=== PATIENT | male | born 1955 | race Caucasian/White ===

== ENCOUNTER 2025-05-27 10:34 | Inpatient (IN) | payer MEDICARE, MEDICAID, SELFPAY ==
[2025-05-27] VITALS (8 sets, daily range): BP systolic 99–146; BP diastolic 60–85; PULSE 57–86; RESP 16–22; TEMP 36.1–37; O2SAT 94–100; BMI 18.6
--- NOTE | 2025-05-27 12:26 | EKG_ITS ---
[facility] Test Date: 2025-05-27 Pat Name: BENNIE OROZCO Department: Room: - Gender: Male Used Equipment Sales Representative: : 1955 Requested By: Odalis Parada Order Number: [id number] Reading MD: Odalis Parada Measurements Intervals [place] Rate: 67 P: HI: QRS: 81 QRSD: 124 T: -79 QT: 418 QTc: 442 Interpretive Statements UNCERTAIN IRREGULAR RHYTHM ELECTRONIC VENTRICULAR PACEMAKER -- CONTOUR ANALYSIS BASED ON INTRINSIC RHYTHM LEFT VENTRICULAR HYPERTROPHY AND ST-T CHANGE [VOLTAGE CRITERIA PLUS ST/T ABNORMALITY] No previous ECG available for comparison /store/S0/[id number].pdf
--- NOTE | 2025-05-27 12:38 | XR_ITS ---
EXAM: AP chest single view TECHNIQUE: AP portable upright chest single view Date and time: May 27, 2025, 12:44 p.m. INDICATIONS: Chest pain shortness of breath onset today. FINDINGS: Mild prominence left ventricle Cardiac leads satisfactory position Prominent central pulmonary arteries. No pneumonia or pulmonary edema IMPRESSION: No pneumonia or pulmonary edema Suspicious for pulmonary artery hypertension
[2025-05-27 13:56] LABS: Basophils # (Auto) 0.1 Thou/mm3 (0.0-0.2); Basophils % (Auto) 1 % (0-2.5); Eosinophils # (Auto) 0.1 Thou/mm3 (0.0-0.5); Eosinophils % (Auto) 1 % (0-10); Hematocrit 42.1 % (41.0-53.0); Hemoglobin 14.1 g/dL (13.5-16.0); Immature Granulocytes Auto 0.05 Thou/mm3 (0.00-0.00); Lymphocytes # (Auto) 1.5 Thou/mm3 (1.0-4.8); Lymphocytes % (Auto) 13 % (10-50); Mean Corpuscular HGB Conc 33.5 g/dl (31.0-37.0); Mean Corpuscular Hemoglobin 26.9 pg (25.0-35.0); Mean Corpuscular Volume 80 fL (80-100); Monocytes # (Auto) 0.7 Thou/mm3 (0.0-0.8); Monocytes % (Auto) 6 % (0-12); Neutrophils # (Auto) 8.8 Thou/mm3 (1.8-7.7); Neutrophils % (Auto) 79 % (37-80); Nucleated Red Blood Cell # 0.00 Thou/mm3 (0.00-0.00); Nucleated Red Blood Cell % 0 /100 WBC (0); Platelet Count 270 Thou/mm3 (140-440); RDW Standard Deviation 49.2 fL (35.1-43.9); Red Blood Count 5.24 Miln/mm3 (4.50-5.90); White Blood Count 11.1 Thou/mm3 (3.8-10.6)
[2025-05-27 14:14] LABS: INR 1.2 (0.9-1.3); Partial Thromboplastin Time 30.0 Seconds (22.0-36.0); Prothrombin Time 12.9 Seconds (9.0-12.2)
[2025-05-27 14:15] LABS: D-Dimer 273 ng/mL (<600)
[2025-05-27 14:32] LABS: B-Type Natriuretic Peptide 80 pg/mL (0-100)
[2025-05-27 14:36] LABS: Alanine Aminotransferase 13 U/L (10-49); Albumin, Serum 4.3 gm/dL (3.4-4.8); Albumin/Globulin Ratio 0.9 (1.2-2.2); Alkaline Phosphatase 87 U/L (46-116); Anion Gap 14 (7-16); Aspartate Amino Transferase 19 U/L (0-34); BUN/Creatinine Ratio 32 Ratio (12-20); Bilirubin,Total 0.7 mg/dL (0.3-1.2); Blood Urea Nitrogen 60 mg/dL (9-23); Calcium 10.0 mg/dL (8.3-10.6); Calcium (Corrected) 10.0 mg/dL (8.5-10.1); Carbon Dioxide 20.8 mMol/L (20.0-31.0); Chloride 100 mMol/L (98-107); Creatinine (Component) 1.9 mg/dL (0.6-1.3); Estimated Creatinine Clearance 36.4 mL/min (>60); Globulin 4.8 gm/dL (2.3-3.5); Glucose 118 mg/dL (74-106); Magnesium 1.8 mg/dL (1.6-2.6); Osmolality,Calculated 288 (275-295); Potassium 5.1 mMol/L (3.4-5.1); Sodium 135 mMol/L (136-145); Total Protein 9.1 gm/dL (5.7-8.2); eGFR 37 See Note
[2025-05-27 14:38] LABS: Troponin I 0.092 ng/mL (0.0-0.045)
--- NOTE | 2025-05-27 15:20 | XR_ITS ---
EXAMINATION: Left hip with AP pelvis 3 views TECHNIQUE: AP pelvis, AP lateral left hip 3 views Date and time: May 27, 2025, 1537 hours INDICATIONS: Patient fell today with into the left hip, left hip pain. FINDINGS: Postop reduction internal fixation healed left hip fracture No acute right or left hip fracture noted Bones of the pelvis intact IMPRESSION: No acute hip or pelvic fracture If pain persists recommend 1 day follow-up AP pelvis
--- NOTE | 2025-05-27 15:20 | XR_ITS ---
EXAMINATION: AP lumbar spine single view TECHNIQUE: AP portable supine lumbar spine single view Date and time: May 27, 2025, 1547 hours INDICATIONS: Patient fell today with injury to the lower back, lower back pain. FINDINGS: Lumbar dextroscoliosis 15 degrees Prominent osteopenia No acute lumbar fracture depicted Large amount of stool in the rectum IMPRESSION: Recommend lateral view lumbar spine follow-up
[2025-05-27 16:06] LABS: Collection Type, Urine Clean Catch; Squamous Epithelial Cell,Urine 0 /hpf (0-5)
[2025-05-27 16:10] LABS: Bilirubin,Urine Negative (Negative); Blood,Urine Negative (Negative); Clarity,Urine Clear (Clear/Hazy); Color,Urine Lt-Yellow (Lt Yel-Yel); Culture Indicated,Urine Not Indicated; Glucose, Urine 3+ (Negative); Hyaline Casts,Urine < 1 /hpf (0-1); Ketones,Urine Negative (Negative); Leukocyte Esterase,Urine Negative (Negative); Nitrite,Urine Negative (Negative); PH,Urine 5.5 (5.0-7.0); Protein,Urine Negative (Neg - Trace); RBC,Urine 1 /hpf (0-3); Specific Gravity,Urine 1.016 (1.001-1.035); Urobilinogen,Urine Negative mg/dL (0.0-1.0); WBC,Urine < 1 /hpf (0-5)
[2025-05-27 16:16] LABS: Amphetamine/Methamp Scrn,U Negative (Negative); Barbiturate Screen,Urine Negative (Negative); Benzodiazepines Screen,Urine Negative (Negative); Benzoylecgonine Screen, Ur Negative (Negative); Fentanyl Screen,Urine Negative (Negative); Opiate Screen,Urine Negative (Negative); THC Screen,Urine Negative (Negative)
--- NOTE | 2025-05-27 16:23 | EDNOTE_ITS ---
ED General RME/HPI General Chief complaint: Shortness of Breath/Dyspnea Stated complaint: SOB Time Seen by Provider: 05/27/25 12:25 Arrival date/time: 05/27/25 10:34 Limitations: no limitations RME / HPI RME / HPI narrative: 69 year old male with history of CVA, CHF, pacemaker placement, hypertension, diabetes, hyperlipidemia presents to the ED BIBA from the methadone clinic for evaluation of shortness of breath and confusion. Per caregiver, the RN at the clinic evidently reported the patient appeared to have difficulty breathing and when asked his name or where he did not answer appropriately. Caregiver ad ditionally reports the patient has had multiple falls in the last several days. Last had a ground level mechanical fall 2 days ago and in the ED complains of pain to the left thigh/hip area. No head injury or LOC. No other complaints reported. Caregiver mentioned the patient has had some memory problems for several months and is being worked up by PCP for dementia. States patient recently had labs and head CT performed at [facility]. Additionally states that 1 month ago the patient saw his chemical research engineer Dr. Lopez and had a stress test performed that was unremarkable. Related Data Allergies Allergy/AdvReac Type Severity Reaction Status Date / Time NKA* Allergy Uncoded 05/27/25 11:48 Review of Systems Review of Systems Systems Reviewed: All systems reviewed, normal except as documented Past Medical History Past Medical History NEUROLOGIC: Positive Cerebrovascular Accident CARDIAC: Positive Hypertension GASTROINTESTINAL: Positive Gastroesophageal Reflux Disease MUSCULOSKELETAL: Positive Fractures ENDOCRINE: Positive Diabetes Mellitus Type 2 Surgical History SURGICAL: Positive Pacemaker Social History SMOKING STATUS: Never smoker ED Exam General Limitations: Present no limitations General appearance: Present alert and in no apparent distress Head Head exam: Present atraumatic Eye Eye exam: Present normal appearance, PERRL and EOMI ENT ENT exam: Present normal exam, normal oropharynx and mucous membranes moist Neck Neck exam: Present normal inspection, full ROM and trachea midline Chest Chest inspection: Present normal inspection and symmetric chest wall rise Respiratory Respiratory exam: Present normal lung sounds bilaterally Cardiovascular Cardiovascular exam: Present regular rate, normal rhythm and normal heart sounds Abdominal Exam Abdominal exam: Present soft and normal bowel sounds Extremities Exam Extremities exam: Present normal inspection and full ROM Back Exam Back exam: Present normal inspection and full ROM Neurological Exam Neurological exam: Present alert, oriented X3 and CN II-XII intact Psychiatric Psychiatric exam: Present normal affect and normal mood Skin Skin exam: Present warm, dry, intact and normal color Course Quality Measures none Orders Category Date Time Status EKG (ED Only) Stat Exams 05/27/25 12:26 Draft XR chest 1V portable Stat Exams 05/27/25 12:38 Completed XR hip LT w pelvis 2-3V Stat Exams 05/27/25 15:20 Completed XR lumbar spine 1V Stat Exams 05/27/25 15:20 Completed B-Type Natriuretic Peptide Stat Lab 05/27/25 13:30 Completed Blood Culture (Lab) Stat Lab 05/27/25 13:23 Received CBC Stat Lab 05/27/25 13:30 Completed Comprehensive Metabolic Panel Stat Lab 05/27/25 13:30 Completed D-Dimer Stat Lab 05/27/25 13:30 Completed Drug Screen,Urine Stat Lab 05/27/25 15:59 Completed Magnesium Stat Lab 05/27/25 13:30 Completed Partial Thromboplastin Time Stat Lab 05/27/25 13:30 Completed Prothrombin Time with INR Stat Lab 05/27/25 13:30 Completed Troponin I Stat Lab 05/27/25 13:30 Completed Troponin I Stat Lab 05/27/25 16:45 Completed Urinalysis, C/S if Indicated Stat Lab 05/27/25 15:50 Completed LORazepam [Ativan] Med 05/27/25 12:27 Discontinued 2 mg PO X1 ONE Vital Signs Vital signs: Vital Signs Temperature 97.6 F 05/27/25 10:53 Pulse Rate 57 L 05/27/25 10:53 Respiratory Rate 18 05/27/25 10:53 Blood Pressure 125/62 05/27/25 10:53 Pulse Oximetry (%) 96 05/27/25 10:53 Oxygen Delivery Method Room Air 05/27/25 10:53 Pulse ox is 96% on room air which is adequate. Discharge Plan Plan Patient Disposition: Admit Acute Care w/in Hospital Patient condition on transfer: Stable Prescriptions/Referrals Referrals: Roque Leonard MD [Primary Care Provider] - In 1 week Problem List Clinical Impression: Elevated troponin, Adult failure to thrive, Acute dehydration Patient/Caregiver Discharge Instructions Print Language: Chinese Stand Alone Forms: Danna Award Info., Patient Portal Info Letter MDM Narrative MDM hospital course (for use when minimal MDM required): This is a 69-year-old male with a history of hypertension, diabetes, pacemaker, seen by cardiology at [place] and has been cleared for the last 10 years from his heart status . Per EMS records the patient had an 88% on room air on arrival. On arrival to the emergency department the patient then had 99% on room air. Blood sugar was 153 prior to arrival. The pneumatic tester mechanic also states that he he was complaining of pain of his left hip when he could have had a mechanical fall. The patient presents with his pneumatic tester mechanic who takes care of him at home because his nurse felt that he was not at his baseline and he was complaining of shortness of breath. She reports that he has been falling more over the last 1 week. He has been being worked up by Dr. Leonard for possible dementia as an outpatient but the decline in his symptoms over the last 1 week has a family concern. Chest x-ray to evaluate for evidence of CHF, CHF, or cardiomegaly. EKG/troponin to evaluate for evidence of arrhythmia/ACS/AMI. Labwork (CBC, CMP) to evaluate for evidence of severe anemia, electrolyte abnl including hypokalemia, hyperkalemia, hypernatremia, hyponatremia, hyperglycemia, hypoglycemia, etc CT brain to evaluate for evidence of mass/CVA/TIA. Patient's pneumatic tester mechanic. The patient is brought in by EMS. (Independent Historian: The patient's pneumatic tester mechanic states that he has not been sleeping the last few days. EXTERNAL RECORD REVIEW: I reviewed and interpreted prior non-ED medical record specialty: There are no previous records in our system. Social Determinants of Health Affecting Care: Patient lives alone with his pneumatic tester mechanic who takes care of him 24 hours a day Social determinants of health that will affect patient's care are:?I have no access to his records. Will need to order them. Poor Health Literacy (Additional Time Provided in Explanation)-N/A Drug Abuse (Provided Counseling and Discussed Risks of Substance Abuse)-patient is on methadone Alcohol Abuse (Provided Counseling and Discussed Risks of Alcohol Abuse)-unknown Psychiatric Illness poorly controlled (Additional Time Provided in Explanations)-unknown Poor access to outpatient care/follow up (Provided Outpatient Resources)-patient has good follow-up as an outpatient with his primary care physician. Lack of transportation (Arranged Transport as Needed)-the patient has a ride with his pneumatic tester mechanic Homelessness (Provided Resources)-the patient is not homeless The patient has an initial troponin of 0.094 and repeat it is 0.090. D-dimer is negative. Suspect that this could be elevated from his creatinine being 1.9. However I do not have previous records. Sodium is 135 and otherwise INR is normal at 1.2. Head CT is obtained which does not show stroke. At this time will likely need to get his previous records. Chest x-ray does not show pneumonia. Lumbar 1 view does not show fracture and recommended repeat lateral view. Hip her x-rays are negative for fracture. At this time I will obtain his records from we are because that is where he gets all his care. Will hydrate. I am unclear if he has acute renal failure but his symptoms could be caused from dehydration. 1830: I spoke with hospitalist team B for admission. State they will come down and evaluate the patient for admission. I did speak to the daughter and the pneumatic tester mechanic who states that over the last few weeks the patient's mental status has been declining. He has been having some frequent falls. No isolated weakness or numbness. No facial droop and otherwise is not having any stroke like other symptoms in the last 3 days. The patient is urinating on himself, he is becoming slightly more agitated. This could just be an undiagnosed dementia. The pneumatic tester mechanic will go home and get a list of all his medications. The patient is also on 60 mg of methadone which the pneumatic tester mechanic has a bottle at home to prove this. The decision to admit has been placed because likely this patient will need to be admitted. Clinical Information Provided by: patient, EMS and family (caregiver ) Medical Records reviewed EMS Meds/Rx considered, not ordered None Labs/Rad/Tests considered, not ordered None Chronic Illness/Social Conditions which may negatively complicate care or outcome(s)-explain: CVA/aphasic EKG Interpretation EKG #1: EKG Interpretation: EKG @ 12:44. Paced rhythm, rate 67, LVH, no prior EKG for comparison. Labs Labs: see narrative above Imaging Imaging interpretation: see narrative above Imaging Interpretation(s): Ordering Physician: Odalis Aponte MD Date of Service: 05/27/25 Procedure(s): XR chest 1V portable Accession Number(s): [id number] cc: Unruly Murcia MD; Odalis Aponte MD~ EXAM: AP chest single view TECHNIQUE: AP portable upright chest single view Date and time: May 27, 2025, 12:44 p.m. INDICATIONS: Chest pain shortness of breath onset today. FINDINGS: Mild prominence left ventricle Cardiac leads satisfactory position Prominent central pulmonary arteries. No pneumonia or pulmonary edema IMPRESSION: No pneumonia or pulmonary edema Suspicious for pulmonary artery hypertension Dictated By: Unruly Murcia MD Signed By: <Electronically signed by Unruly Murcia MD in OV> 05/27/25 1300 ==== Ordering Physician: Holly Arenas MD Date of Service: 05/27/25 Procedure(s): XR hip LT w pelvis 2-3V Accession Number(s): [id number] cc: Roque Leonard MD; Holly Arenas MD; Unruly Murcia MD~ EXAMINATION: Left hip with AP pelvis 3 views TECHNIQUE: AP pelvis, AP lateral left hip 3 views Date and time: May 27, 2025, 1537 hours INDICATIONS: Patient fell today with into the left hip, left hip pain. FINDINGS: Postop reduction internal fixation healed left hip fracture No acute right or left hip fracture noted Bones of the pelvis intact IMPRESSION: No acute hip or pelvic fracture If pain persists recommend 1 day follow-up AP pelvis Dictated By: Unruly Murcia MD Signed By: <Electronically signed by Unruly Murcia MD in OV> 05/27/25 1614 Ordering Physician: Holly Arenas MD Date of Service: 05/27/25 Procedure(s): XR lumbar spine 1V Accession Number(s): [id number] cc: Roque Leonard MD; Holly Arenas MD; Unruly Murcia MD~ EXAMINATION: AP lumbar spine single view TECHNIQUE: AP portable supine lumbar spine single view Date and time: May 27, 2025, 1547 hours INDICATIONS: Patient fell today with injury to the lower back, lower back pain. FINDINGS: Lumbar dextroscoliosis 15 degrees Prominent osteopenia No acute lumbar fracture depicted Large amount of stool in the rectum IMPRESSION: Recommend lateral view lumbar spine follow-up Dictated By: Unruly Murcia MD Signed By: <Electronically signed by Unruly Murcia MD in OV> 05/27/25 1616 Medication Administration(s) Medication Administration History Discontinued Medications Lorazepam (Lorazepam 0.5 Mg Tablet) 2 mg PO X1 ONE Stop: 05/27/25 12:28 Last Admin: 05/27/25 12:30 Dose: Not Given Documented By: DO Non-Admin Reason: Discontinued See above
[2025-05-27 17:26] LABS: Troponin I 0.090 ng/mL (0.0-0.045)
--- NOTE | 2025-05-27 19:53 | PD.EDADDENDU ---
Emergency Room Addendum Addendum Narrative: Patient was signed out to me awaiting admission. The medicine team came down to evaluate the patient and they do not believe the patient needs to be admitted. Patient is in stable condition. He had a recent stress echocardiogram which was negative. First troponin was 0.092 and the second troponin was 0.090. EKG showed no ischemic changes. Patient is mildly demented and in no respiratory distress. No complaints of pain. Patient does have a history of chronic kidney disease. He has mild prerenal azotemia here in the emergency room. I believe the patient can be discharged. He does have primary care follow-up.
--- NOTE | 2025-05-27 20:06 | PD.RESCONSUL ---
HPI Data of Consult Consult date: 05/27/25 Primary Care Provider: Roque Leonard MD Consult Narrative History of present illness: 69 year old male with history of CVA, CHF, pacemaker placement, hypertension, diabetes, hyperlipidemia, CKD presents to the ED BIBA from the methadone clinic for evaluation of shortness of breath and confusion. Patient has underlying dementia at baseline for which his PCP is working up. He had recent work up done in [facility] for including cardiac work up which was found to be negative. The caregiver reports per chart review that the patient is having falls however workup in the ED reveals no acute fracture. On review of his labs they seem to be mostly inremarkable except for some troponins which are downtrending and EKG with no acute ischemic changes and patient has no complaints of cardiac symptoms nor shortness of breath as patient is saturating 99% on room air resting comfortably. His labs also show CKD stage IIIb and received IV hydration in the ED. Clinically the patient looks stable with benign physical exam. The medicine teams believes given his dementia and his problems that were already adressed in the ED patient can be safely discharged with strict follow up with his primary care physician and to avoid hospital aquired delirium from his dementia. Should any new symptoms recur or worsen patient can return to the ED and the medicine team will gladly evaluate the patient. cc:: cc: Exam Vital Signs Temp Pulse Resp BP Pulse Ox O2 Del Method 98.0 F 78 20 106/74 96 Room Air 05/27/25 19:41 05/27/25 19:41 05/27/25 19:41 05/27/25 19:41 05/27/25 19:41 05/27/25 19:41 Results Labs 05/27/25 13:30 05/27/25 13:30 Labs: Short CBC 05/27/25 Range/Units 13:30 WBC 11.1 H (3.8-10.6) Thou/mm3 Hgb 14.1 (13.5-16.0) g/dL Hct 42.1 (41.0-53.0) % Plt Count 270 (140-440) Thou/mm3 BMP 05/27/25 13:30 Sodium 135 L Potassium 5.1 Chloride 100 Carbon Dioxide 20.8 BUN 60 H Creatinine 1.9 H Glucose 118 H Calcium 10.0 Cardiac Enzymes 05/27/25 05/27/25 Range/Units 13:30 16:45 Troponin I 0.092 H* 0.090 H* (0.0-0.045) ng/mL Liver Function 05/27/25 Range/Units 13:30 Total Bilirubin 0.7 (0.3-1.2) mg/dL AST 19 (0-34) U/L ALT 13 (10-49) U/L Alkaline Phosphatase 87 (46-116) U/L Albumin 4.3 (3.4-4.8) gm/dL Urine 05/27/25 Range/Units 15:50 Urine Color Lt-Yellow (Lt Yel-Yel) Urine Clarity Clear (Clear/Hazy) Urine pH 5.5 (5.0-7.0) Ur Specific [place] 1.016 (1.001-1.035) Urine Protein Negative (Neg - Trace) Urine Glucose (UA) 3+ A (Negative) Quality Measures Quality Measures none Medications Home Medications and Allergies Allergies Allergy/AdvReac Type Severity Reaction Status Date / Time NKA* Allergy Uncoded 05/27/25 11:48 Visit Medications Discontinued Medications Lorazepam (Lorazepam 0.5 Mg Tablet) 2 mg PO X1 ONE Stop: 05/27/25 12:28 Last Admin: 05/27/25 12:30 Dose: Not Given
--- NOTE | 2025-05-27 20:25 | ESHP_ITS ---
Documentation for date of: 05/27/25 HPI - Hospitalist History of Present Illness History of present illness: Source: I spoke with her daughter over the phone. The patient's caregiver is also at bedside CC: Shortness of breath, increased confusion HPI: The patient is 69 yr old male. Past medical history is significant for . The patient presents with shortneees of breath and confusion. He had recent falls at home. He is being worked up for possible dementia. He was at the Methadone clinic today where he was noted to be short of breath and confused ( more than his baseline). His caregiver is beside him in the ER. Onset of symptom is few days. Duration is fes days. He is takking his medications. List of meds not available. Aggravating/relieving factors - none. Associated symptoms include urinary incontinence. nausea. Pertinent negative, no fever, no cough. Context. There was no recent procedures and no change in medications. No use of OTC medications There was no recent travel and no sick contacts. No recent trauma or falls. Patient lives at home, he has a caregiver. Patient is FULL CODE. Past medical history: + diabetes, + hypertension, + CHF, + CVA Surgical history: left hip nailing, Pacemaker Personal history: non smoker, non ETOH drinker, no recreational drug use. Family history: no diabetes, no hypertension, no heart disease, no cancer. Meds Home Medications and Allergies Allergies Allergy/AdvReac Type Severity Reaction Status Date / Time NKA* Allergy Uncoded 05/27/25 11:48 Exam Vital Signs Temp Pulse Resp BP Pulse Ox O2 Del Method 98.6 F 80 16 114/60 96 Room Air 05/27/25 20:06 05/27/25 20:06 05/27/25 20:06 05/27/25 20:06 05/27/25 20:06 05/27/25 19:41 Gen: Awake, confused Skin: warm, good turgor, no rash HEENT: NCAT, [place], no nasoaural discharge, dry mucous membranes Neck: supple, no JVD, no thyromegaly Lungs: clear to auscultation, PPM left upper chest CV: regular rate and rhythm, no murmurs, no edema Abd: soft and non tender, normoactive bowel sounds : no CVA tenderness, min supapubic fullness Ext: no calf tenderness. Neuro: alert, oriented, non focal Psych: calm, cooperative, not depressed. Results - Hospitalist Labs Diagrams: 05/27/25 13:30 05/27/25 13:30 Labs: Short CBC 05/27/25 Range/Units 13:30 WBC 11.1 H (3.8-10.6) Thou/mm3 Hgb 14.1 (13.5-16.0) g/dL Hct 42.1 (41.0-53.0) % Plt Count 270 (140-440) Thou/mm3 BMP 05/27/25 13:30 Sodium 135 L Potassium 5.1 Chloride 100 Carbon Dioxide 20.8 BUN 60 H Creatinine 1.9 H Glucose 118 H Calcium 10.0 Cardiac Enzymes 05/27/25 05/27/25 Range/Units 13:30 16:45 Troponin I 0.092 H* 0.090 H* (0.0-0.045) ng/mL Liver Function 05/27/25 Range/Units 13:30 Total Bilirubin 0.7 (0.3-1.2) mg/dL AST 19 (0-34) U/L ALT 13 (10-49) U/L Alkaline Phosphatase 87 (46-116) U/L Albumin 4.3 (3.4-4.8) gm/dL Urine 05/27/25 Range/Units 15:50 Urine Color Lt-Yellow (Lt Yel-Yel) Urine Clarity Clear (Clear/Hazy) Urine pH 5.5 (5.0-7.0) Ur Specific [place] 1.016 (1.001-1.035) Urine Protein Negative (Neg - Trace) Urine Glucose (UA) 3+ A (Negative) Assessment & Plan -Hospitalist Patient Synopsis Assessment and plan: 69-year-old male patient with hypertension, diabetes mellitus, congestive heart failure, history of CVA, status post permanent pacemaker was seen in the ED today. He came from the methadone clinic where he was noted to be short of breath and more confused than his baseline he also reportedly has been falling down at home. He has no fever no cough. He had elevated troponin. EKG showed sinus rhythm with PVCs. Nonspecific ST-T wave changes. Head CT scan was ordered. 1. Acute kidney injury -BUN 60 creatinine 1.9. Potassium level is 5.1. Will need to monitor potassium level. - - prob pre-renal will give LR 75 ml/hr. check I/O, body weight - repeat BUN and creatinine - renal ultrasound ordered, to r/o obstructive uropathy, kidney stones 2. Dysnpea, prob acute on chronic CHF elevated tropoin , prob demand ischemia - check BNP, pt is not hypoxic, no fever - chest xray show no effusion, no cardiomegaly - monitor O2 sats check O2 sat particularly during activity or during ambulation - give supplemental oxygen, continuous cardiac monitoring, - ASA. lipitor - dimer and BNP not elevated. 3. Acute encephalopathy - prob metabolic, or may drug induced - check CT brain wo contrast - check for new stroke, NPH, SDH - consult neurolgy in am. 4. Diabetes mellitus - he is on oral medications, 5.Hypertension - resume home meds 6 hyponatremia -Serum sodium level of 135, we will continue to follow. CODE STATUS: Full code GI and DVT prophylaxis Estimated length of stay: Less than 2 midnights Quality Measures Quality Measures none Advance care planning discussed with:: child (daughter)
--- NOTE | 2025-05-27 20:34 | EDNOTE_ITS ---
Emergency Room Addendum Addendum Narrative: The internal medicine attending came down to evaluate the patient. They spoke with family members and the supervisor furnace process. Patient now will be admitted to the hospital for further treatment and evaluation.
--- NOTE | 2025-05-27 20:40 | XR_ITS ---
EXAMINATION: CT head brain without contrast Date and time: May 27, 2025, 10:30 p.m. INDICATIONS: Patient fell today with injury to the head, head pain TECHNIQUE: Multiple 5.0 mm situses axial images of the brain 2D sagittal and coronal reconstructions 3D reconstructions CTDI 48.5 DLP 962 FINDINGS: Ventricles normal size and configuration Old infarct left caudate nucleus No acute hemorrhage either intra or extra-axial Prominent ethmoid sphenoid sinusitis IMPRESSION: Negative for acute hemorrhage or mass effect or midline shift
--- NOTE | 2025-05-27 20:46 | XR_ITS ---
EXAMINATION: Retroperitoneal sonography complete Date and time: May 27, 2025, 2055 hours Indications of: Acute renal insufficiency and laboratory examination today Technique and findings: Multiple sonographic images kidneys and urinary bladder as follows retroperitoneum Right kidney 9.5 cm renal cortex 2.1 cm Left kidney 10.6 cm renal cortex 1.8 cm Moderate bilateral renal parenchymal scar formation No bladder mass or bladder calculi Bladder prevoid volume 138 cc Prostate 4.4 x 3.6 x 4.8 cm volume 39.8 cc no prostate nodules IMPRESSION: Small kidneys with renal cortical thinning Moderate bilateral renal parenchymal scar formation No hydronephrosis
[2025-05-27] MEDS: RINGERS LACTATED 1000 ML 1,000 ML 75 ML IV (21:10)
[2025-05-27 21:38] LABS: D-Dimer 426 ng/mL (<600)
[2025-05-27 21:42] LABS: B-Type Natriuretic Peptide 98 pg/mL (0-100)
[2025-05-27 21:46] LABS: Troponin I 0.095 ng/mL (0.0-0.045)
[2025-05-28] VITALS (8 sets, daily range): BP systolic 91–123; BP diastolic 52–80; PULSE 50–83; RESP 16–25; TEMP 35.9–36.2; O2SAT 95–100; BMI 16.9; BMI 13.0
[2025-05-28 03:06] LABS: Basophils # (Auto) 0.1 Thou/mm3 (0.0-0.2); Basophils % (Auto) 1 % (0-2.5); Eosinophils # (Auto) 0.1 Thou/mm3 (0.0-0.5); Eosinophils % (Auto) 1 % (0-10); Hematocrit 40.2 % (41.0-53.0); Hemoglobin 13.5 g/dL (13.5-16.0); Immature Granulocytes Auto 0.05 Thou/mm3 (0.00-0.00); Lymphocytes # (Auto) 2.1 Thou/mm3 (1.0-4.8); Lymphocytes % (Auto) 15 % (10-50); Mean Corpuscular HGB Conc 33.6 g/dl (31.0-37.0); Mean Corpuscular Hemoglobin 26.5 pg (25.0-35.0); Mean Corpuscular Volume 79 fL (80-100); Monocytes # (Auto) 1.0 Thou/mm3 (0.0-0.8); Monocytes % (Auto) 7 % (0-12); Neutrophils # (Auto) 10.1 Thou/mm3 (1.8-7.7); Neutrophils % (Auto) 76 % (37-80); Nucleated Red Blood Cell # 0.00 Thou/mm3 (0.00-0.00); Nucleated Red Blood Cell % 0 /100 WBC (0); Platelet Count 278 Thou/mm3 (140-440); RDW Standard Deviation 48.3 fL (35.1-43.9); Red Blood Count 5.09 Miln/mm3 (4.50-5.90); White Blood Count 13.4 Thou/mm3 (3.8-10.6)
[2025-05-28 03:33] LABS: Anion Gap 13 (7-16); BUN/Creatinine Ratio 51 Ratio (12-20); Blood Urea Nitrogen 77 mg/dL (9-23); Calcium 9.2 mg/dL (8.3-10.6); Carbon Dioxide 20.2 mMol/L (20.0-31.0); Cardiac Risk Estimate 3.6 RATIO (4.0-6.7); Chloride 100 mMol/L (98-107); Cholesterol 113 mg/dL (132-200); Creatinine (Component) 1.5 mg/dL (0.6-1.3); Estimated Creatinine Clearance 46.2 mL/min (>60); Glucose 102 mg/dL (74-106); HDL Cholesterol 31 mg/dL (40-60); LDL Cholesterol,Calculated 59 mg/dL (0-130); Magnesium 1.8 mg/dL (1.6-2.6); Osmolality,Calculated 289 (275-295); Potassium 4.8 mMol/L (3.4-5.1); Sodium 133 mMol/L (136-145); Thyroid Stimulating Hormone 0.93 uIU/mL (0.55-4.78); Triglycerides 117 mg/dL (30-150); eGFR 50 See Note
[2025-05-28 03:34] LABS: Troponin I 0.092 ng/mL (0.0-0.045)
[2025-05-28 07:33] LABS: Phosphorous 4.7 mg/dL (2.4-5.1)
[2025-05-28 08:54] LABS: Glucose Estimated Average 148 mg/dL (80-131); Hemoglobin A1C 6.8 % Hgb (4.8-6.0)
--- NOTE | 2025-05-28 09:00 | EKG_ITS ---
[facility] Test Date: 2025-05-28 Pat Name: BENNIE BHARDWAJ Department: Room: - Gender: Male Trousseau Consultant: VALENTIN : 1955 Requested By: Cheo Cheung Order Number: [id number] Reading MD: Cheo Cheung Measurements Intervals [place] Rate: 79 P: AK: QRS: 83 QRSD: 110 T: 267 QT: 417 QTc: 480 Interpretive Statements ATRIAL FIBRILLATION WITH ABERRANT CONDUCTION OR VENTRICULAR PREMATURE COMPLEXES ST DEVIATION AND MARKED T-WAVE ABNORMALITY, CONSIDER LATERAL ISCHEMIA ST DEVIATION AND MODERATE T-WAVE ABNORMALITY, CONSIDER INFERIOR ISCHEMIA No previous ECG available for comparison /store/S0/[id number]/[id number]
[2025-05-28 09:10] LABS: Troponin I 0.102 ng/mL (0.0-0.045)
--- NOTE | 2025-05-28 09:30 | PC.NURSE ---
Spoke to Nurse Jana from [facility] to verify methadone dosage. Per Jana patient is taking methadone 60mg daily and he did not received his methadone dose yesterday (05/27/25). Dr. Pickering made aware.
[2025-05-28] MEDS: Magnesium Sulfate 4 GM Ivpb 4 GM/50 ML BAG IV (09:44)
[2025-05-28] MEDS: TAMSULOSIN HCL 0.4 MG CAPSULE PO (09:46)
[2025-05-28] MEDS: APIXABAN 2.5 MG TABLET 5 MG PO ×2 (09:46→20:30)
[2025-05-28] MEDS: FINASTERIDE 5 MG TABLET PO (09:48)
[2025-05-28] MEDS: POLYETHYLENE GLYCOL 17 GM PACKET PO (09:48)
--- NOTE | 2025-05-28 14:53 | PC.SS ---
Rounding Note: PT evaluation is pending. Bowel movement pending.
--- NOTE | 2025-05-28 15:34 | PC.SS ---
COMMUNITY YOUTH SECRETARY conducted bedside contact with the patient conduct initial assessment and to discuss discharge planning.? At bedside with patient was [facility] healthcare analyst, Nida Song .? Patient resides at home alone.? Patient receives 30 hrs a week of [facility].? Patient utilizes a walker to assist with DME.? Patient does not utilize home oxygen.? Patient requires assistance with completion of ADL?s.? Patient confirmed daughter, Sneha Lama as medical surrogate decision maker.? Patient?s PCP is Roque Leonard.? Patient does not participate with dialysis.? Patient possesses a butter liquefier Osman Russell.? Patient possesses history of diabetes, on Metformin and Ozempic.? Discharge plan is pending home vs SNF.? If home health recommended, no preferred home health agency identified.? If SNF recommended no SNF preference.? Patient informed that SNF placement will require authorization.? Patient possesses coverage for transport upon discharge.? No further discharge needs identified by the patient.? No further intervention required at this time, social research assistant will be available to address any further concerns.? Next of Kin: Sneha Kelby D/C Plan: Pending
[2025-05-28] MEDS: SODIUM CHLORIDE 0.9% 250 ML 250 ML 999 ML IV (15:40)
--- NOTE | 2025-05-28 16:05 | PD.RESPRO ---
Documentation for date of: 05/28/25 Subjective Subjective Interval history: Labs reviewed and patient examined at the bedside. Today patient is AAO x 1. He noted that he had a history of seizure causing him unable to move his left arm. However, patient was able to walk and perform daily activities by himself at home. Per chart history, there were no witnessed seizure and no post ictal state has been noted. Based on lumbar x-ray, patient had a large stool so he was given senna, MiraLAX and Dulcolax for bowel movement. Tried to contact the patient's daughter to inquire her about patient's baseline. However, was unable to get in touch with her. HbA1c showed 6.8. Patient was put on insulin sliding scale. Patient's home medications finasteride 5 mg p.o. daily and tamsulosin 0.4 mg p.o. daily has been restarted. Currently pending Physical Therapy assessment for patient's placement after discharge. Patient or Patient's daughter need to be notified to get assessment for possibly undiagnosed underlying dementia in outpatient setting. Exam Vital Signs Temp Pulse Resp BP Pulse Ox O2 Del Method 97.0 F 83 16 91/52 L 95 Room Air 05/28/25 15:44 05/28/25 15:44 05/28/25 15:44 05/28/25 15:44 05/28/25 15:44 05/28/25 15:44 Narrative Exam General: Elderly, Frail, AAO x1 Eye: Normal conjunctiva, no scleral icterus HENT: Normocephalic, atraumatic, hearing intact to conversation at normal volume, moist oral mucosa Neck: Supple, non-tender, no JVD, no lymphadenopathy Lungs: Non-labored respirations, symmetric chest rise, Clear to auscultate bilaterally, No wheezing, rhonchi, crackles Heart: Peripheral pulses intact bilaterally, Regular Rate and Rhythm. Abdomen: Soft, non-tender, non-distended, no palpable masses Musculoskeletal: Normal range of motion and strength, No cyanosis or edema, No visible joint swelling Skin: Skin is warm, dry, no rashes or lesions. Psychiatric: Cooperative, appropriate mood and affect, Awake and alert, not agitated Neuro: Cranial nerves II-XII grossly intact. Sensations intact to light touch. Muscle strength 1/5 on left arm, 5/5 muscle strength on right arm. Objective Labs 10/17/25 04:56 05/29/25 04:56 Labs: Laboratory Results - last 24 hr 05/27/25 05/27/25 05/27/25 15:50 15:59 16:45 WBC RBC Hgb Hct MCV MCH MCHC RDW Std Deviation Plt Count Neut % (Auto) Lymph % (Auto) [place] % (Auto) Eos % (Auto) Baso % (Auto) Neut # (Auto) Lymph # (Auto) [place] # (Auto) Eos # (Auto) Baso # (Auto) Immature Gran # (Auto) Absolute Nucleated RBC Immature Gran % Nucleated RBC % D-Dimer Sodium Potassium Chloride Carbon Dioxide Anion Gap BUN Creatinine Estim Creat Clear Calc eGFR BUN/Creatinine Ratio Glucose Estimated Ave Glu mg/dL Hemoglobin A1c Calculated Osmolality Calcium Phosphorus Magnesium Troponin I 0.090 H* B-Natriuretic Peptide Triglycerides Cholesterol LDL Cholesterol, Calc HDL Cholesterol Cholesterol/HDL Ratio TSH Ur Collection Type Clean Catch Urine Color Lt-Yellow Urine Clarity Clear Urine pH 5.5 Ur Specific [place] 1.016 Urine Protein Negative Urine Glucose (UA) 3+ A Urine Ketones Negative Urine Blood Negative Urine Nitrite Negative Urine Bilirubin Negative Urine Urobilinogen (Auto) Negative Ur Leukocyte Esterase Negative Urine RBC 1 Urine WBC < 1 Ur Squamous Epith Cells 0 Urine Bacteria None Hyaline Casts < 1 Ur Culture Indicated? Not Indicated Urine Opiates Screen Negative Urine Fentanyl Screen Negative Ur Barbiturates Screen Negative U Amphetamin/Meth Scrn Negative U Benzodiazepines Scrn Negative U Cocaine Metab Screen Negative U Marijuana (THC) Screen Negative 05/27/25 05/28/25 05/28/25 21:15 02:44 08:20 WBC 13.4 H RBC 5.09 Hgb 13.5 Hct 40.2 L MCV 79 L MCH 26.5 MCHC 33.6 RDW Std Deviation 48.3 H Plt Count 278 Neut % (Auto) 76 Lymph % (Auto) 15 [place] % (Auto) 7 Eos % (Auto) 1 Baso % (Auto) 1 Neut # (Auto) 10.1 H Lymph # (Auto) 2.1 [place] # (Auto) 1.0 H Eos # (Auto) 0.1 Baso # (Auto) 0.1 Immature Gran # (Auto) 0.05 H Absolute Nucleated RBC 0.00 Immature Gran % 0 Nucleated RBC % 0 D-Dimer 426 Sodium 133 L Potassium 4.8 Chloride 100 Carbon Dioxide 20.2 Anion Gap 13 BUN 77 H Creatinine 1.5 H Estim Creat Clear Calc 46.2 L eGFR 50 L BUN/Creatinine Ratio [address] Glu mg/dL 148 H Hemoglobin A1c 6.8 H Calculated Osmolality 289 Calcium 9.2 Phosphorus 4.7 Magnesium 1.8 Troponin I 0.095 H* 0.092 H* 0.102 H* B-Natriuretic Peptide 98 Triglycerides 117 Cholesterol 113 L LDL Cholesterol, Calc 59 HDL Cholesterol 31 L Cholesterol/HDL Ratio 3.6 L TSH 0.93 Ur Collection Type Urine Color Urine Clarity Urine pH Ur Specific [place] Urine Protein Urine Glucose (UA) Urine Ketones Urine Blood Urine Nitrite Urine Bilirubin Urine Urobilinogen (Auto) Ur Leukocyte Esterase Urine RBC Urine WBC Ur Squamous Epith Cells Urine Bacteria Hyaline Casts Ur Culture Indicated? Urine Opiates Screen Urine Fentanyl Screen Ur Barbiturates Screen U Amphetamin/Meth Scrn U Benzodiazepines Scrn U Cocaine Metab Screen U Marijuana (THC) Screen Quality Measures Quality Measures none Advance care planning discussed with:: patient Assessment & Plan Assessment Current Active Medications: Generic Name Dose Route Start Last Admin Trade Name Freq PRN Reason Stop Dose Admin Acetaminophen 650 mg 05/27/25 20:34 Acetaminophen 325 Mg Tablet PO 06/26/25 20:33 Q6H PRN Fever >101.5 Al Hydrox/Mg Hydrox/Simethicone 30 ml 05/27/25 20:34 Mg Hyd/Al Hyd/Nelida (Maalox Reg) Susp 30 Ml Udc PO 06/26/25 20:33 Q6H PRN Indigestion Apixaban 5 mg 05/28/25 09:00 05/28/25 09:46 Apixaban 2.5 Mg Tablet PO 06/27/25 08:59 5 mg BID AMANDA Administration Dextrose 25 ml 05/28/25 14:50 Dextrose 50%-Water Inj 50 Ml Syringe IV 06/27/25 14:49 Q15MIN PRN BG 50-70 responsive npo pt Dextrose 50 ml 05/28/25 14:50 Dextrose 50%-Water Inj 50 Ml Syringe IV 06/27/25 14:49 Q15MIN PRN BG <50 OR BG <70 & pt unresponsive Finasteride 5 mg 05/28/25 09:00 05/28/25 09:48 Finasteride 5 Mg Tablet PO 06/27/25 08:59 5 mg QDAY AMANDA Administration Glucagon 1 mg 05/28/25 14:50 Glucagon Inj 1 Mg Vial IM Q15MIN PRN BG <70, and no IV access Insulin Human Lispro 0 unit 05/28/25 17:00 Insulin Lispro (Admelog) 1 Unit/0.01 Ml Unit SC 06/27/25 16:59 ACHS MAANDA Protocol Non-Formulary Medication 60 mg 05/29/25 09:00 Methadone PO 06/28/25 08:59 QDAY AMANDA Ondansetron HCl 4 mg 05/27/25 20:34 Ondansetron Inj 2 Mg/Ml Inj 2 Ml IVP 06/26/25 20:33 Q6H PRN NAUSEA OR VOMITING Protocol Sennosides 1 tab 05/28/25 09:00 05/28/25 09:47 Senna Tablet PO 06/27/25 08:59 1 tab QDAY AMANDA Administration Protocol Tamsulosin HCl 0.4 mg 05/28/25 09:00 05/28/25 09:46 Tamsulosin Hcl 0.4 Mg Capsule PO 06/27/25 08:59 0.4 mg QDAY AMANDA Administration Plan 69-year-old male patient with hypertension, diabetes mellitus, congestive heart failure, history of CVA, status post permanent pacemaker was seen in the ED today. He came from the methadone clinic where he was noted to be short of breath and more confused than his baseline he also reportedly has been falling down at home. He has no fever no cough. He had elevated troponin. EKG showed sinus rhythm with PVCs. Nonspecific ST-T wave changes. Head CT scan was ordered. #Acute Encephalopathy? -AAOx1 but unknown patient's baseline, unable to get in touch with patient's daughter -No witnesses of seizure or post-ictal state noted. -Per patient, he had hx of seizure, unable to move his left arm -Head CT: Negative for acute hemorrhage or mass effect or midline shift Plan: -Pending PT note -Possibly get in touch with daughter for patient's baseline #Dyspnea #Troponemia - Resolving -BNP 98. Troponin downtrending, D dimer normal -CXR: No pneumonia or pulmonary edema, Suspicious for pulmonary artery hypertension -Vitals stable. Patient is asymptomatic. Plan: -Resumed patient's home med eliquis. -Monitor O2 sats check O2 sat particularly during activity or during ambulation #KATE -BUN 60 creatinine 1.9 on admission -Renal US: Small kidneys with renal cortical thinning, Moderate bilateral renal parenchymal scar formation, No hydronephrosis Plan: -Monitor morning labs. -Strict I and O -Avoid nephrotoxins -Renally dose medication #Leukocytosis -WBC: 11.1 to 13.4 -Vitals stable. Afebrile Plan: -Will continue to montir #Hypertension - resume home meds #Hyponatremia -Serum sodium level of 135, we will continue to follow. -Fluid restrict CODE STATUS: Full code GI and DVT prophylaxis Estimated length of stay: Less than 2 midnights Assessment and plan discussed with my attending physician Dr. Nitza Guy (PGY-1) - Internal medicine resident Attending Provider Attestation/Addendum I have examined the patient, reviewed labs and imaging findings, discussed the case with the resident(s), and reviewed entered orders. I agree with the plan of care as outlined in this note. Dr. Nitza MD
[2025-05-28] MEDS: MECLIZINE HCL 25 MG TABLET PO (20:30)
[2025-05-29] VITALS (10 sets, daily range): BP systolic 66–120; BP diastolic 37–85; PULSE 58–90; RESP 12–20; TEMP 36–36.3; O2SAT 91–99; BMI 16.0; BMI 13.0
[2025-05-29 06:03] LABS: Basophils # (Auto) 0.1 Thou/mm3 (0.0-0.2); Basophils % (Auto) 1 % (0-2.5); Eosinophils # (Auto) 0.1 Thou/mm3 (0.0-0.5); Eosinophils % (Auto) 1 % (0-10); Hematocrit 42.0 % (41.0-53.0); Hemoglobin 14.8 g/dL (13.5-16.0); Immature Granulocytes Auto 0.03 Thou/mm3 (0.00-0.00); Lymphocytes # (Auto) 2.4 Thou/mm3 (1.0-4.8); Lymphocytes % (Auto) 19 % (10-50); Mean Corpuscular HGB Conc 35.2 g/dl (31.0-37.0); Mean Corpuscular Hemoglobin 26.9 pg (25.0-35.0); Mean Corpuscular Volume 76 fL (80-100); Monocytes # (Auto) 1.2 Thou/mm3 (0.0-0.8); Monocytes % (Auto) 10 % (0-12); Neutrophils # (Auto) 8.6 Thou/mm3 (1.8-7.7); Neutrophils % (Auto) 69 % (37-80); Nucleated Red Blood Cell # 0.00 Thou/mm3 (0.00-0.00); Nucleated Red Blood Cell % 0 /100 WBC (0); Platelet Count 274 Thou/mm3 (140-440); RDW Standard Deviation 46.2 fL (35.1-43.9); Red Blood Count 5.50 Miln/mm3 (4.50-5.90); White Blood Count 12.4 Thou/mm3 (3.8-10.6)
[2025-05-29 06:26] LABS: Anion Gap 13 (7-16); BUN/Creatinine Ratio 40 Ratio (12-20); Blood Urea Nitrogen 48 mg/dL (9-23); Calcium 9.5 mg/dL (8.3-10.6); Carbon Dioxide 20.3 mMol/L (20.0-31.0); Chloride 97 mMol/L (98-107); Creatinine (Component) 1.2 mg/dL (0.6-1.3); Estimated Creatinine Clearance 49.8 mL/min (>60); Glucose 123 mg/dL (74-106); Magnesium 2.4 mg/dL (1.6-2.6); Osmolality,Calculated 274 (275-295); Potassium 4.4 mMol/L (3.4-5.1); Sodium 130 mMol/L (136-145); eGFR > 60 See Note
[2025-05-29] MEDS: APIXABAN 2.5 MG TABLET 5 MG PO ×2 (08:14→20:45)
[2025-05-29] MEDS: METHADONE HCL 10 MG TABLET 60 MG PO (08:14)
[2025-05-29] MEDS: FINASTERIDE 5 MG TABLET PO (08:15)
[2025-05-29] MEDS: TAMSULOSIN HCL 0.4 MG CAPSULE PO (08:15)
--- NOTE | 2025-05-29 09:27 | ESPR_ITS ---
Documentation for date of: 05/29/25 Subjective - Hospitalist Subjective Interval history: No complaints of chest pain or shortness of breath. Reports being more forgetful recently. Had a conversation with patient's daughter regarding his symptoms, diagnosis, current management plan. Patient became hypotensive with SBP ranging in 70s however had intact radial pulses bilaterally and was wide-awake alert oriented without any symptoms. Review of Systems Review of Systems Narrative Review of Systems: Negative except as above Exam Vital Signs Temp Pulse Resp BP Pulse Ox O2 Del Method 96.8 F 71 14 106/82 97 Room Air 05/29/25 08:00 05/29/25 08:00 05/29/25 08:00 05/29/25 08:00 05/29/25 08:00 05/29/25 08:00 Additional findings Additional findings: General: Elderly, Frail, AAO x3 though forgetful. Eye: Normal conjunctiva, no scleral icterus HENT: Normocephalic, atraumatic, hearing intact to conversation at normal volume, moist oral mucosa Neck: Supple, non-tender, no JVD, no lymphadenopathy Lungs: Non-labored respirations, symmetric chest rise, Clear to auscultate bilaterally, No wheezing, rhonchi, crackles Heart: Peripheral pulses intact bilaterally, Regular Rate and Rhythm. Abdomen: Soft, non-tender, non-distended, no palpable masses Musculoskeletal: Normal range of motion and strength, No cyanosis or edema, No visible joint swelling Skin: Skin is warm, dry, no rashes or lesions. Psychiatric: Cooperative, appropriate mood and affect, Awake and alert, not agitated Neuro: Left upper extremity contractures and weakness which is chronic. Objective - Hospitalist Labs Diagram: 05/29/25 04:56 05/29/25 04:56 Labs: Laboratory Results - last 24 hr 05/29/25 04:56 WBC 12.4 H RBC 5.50 Hgb 14.8 Hct 42.0 MCV 76 L MCH 26.9 MCHC 35.2 RDW Std Deviation 46.2 H Plt Count 274 Neut % (Auto) 69 Lymph % (Auto) 19 [place] % (Auto) 10 Eos % (Auto) 1 Baso % (Auto) 1 Neut # (Auto) 8.6 H Lymph # (Auto) 2.4 [place] # (Auto) 1.2 H Eos # (Auto) 0.1 Baso # (Auto) 0.1 Immature Gran # (Auto) 0.03 H Absolute Nucleated RBC 0.00 Immature Gran % 0 Nucleated RBC % 0 Sodium 130 L Potassium 4.4 Chloride 97 L Carbon Dioxide 20.3 Anion Gap 13 BUN 48 H Creatinine 1.2 Estim Creat Clear Calc 49.8 L eGFR > 60 BUN/Creatinine Ratio 40 H Glucose 123 H Calculated Osmolality 274 L Calcium 9.5 Magnesium 2.4 Assessment & Plan Patient Synopsis A 69-year-old Hx of HTN, DM, CHF, CVA, PPM in place came from the methadone clinic where he was noted to be short of breath and more confused than his baseline with reported falls at home. Patient was admitted for KATE, potential metabolic encephalopathy and suspected heart failure. noted to have elevated troponin plateaued peaked at 0.102, with EKG revealing nonspecific ST-T wave changes. Head CT unremarkable, UA clear. CXR did not reveal any pulmonary edema or infiltrates. US KUB revealed medical renal disease, creatinine is improving currently 1.2. However sodium dropped to 130s. Will get TTE, cardiac functional evaluation. Patient developed hypotension today after taking methadone however remained stable awake awake alert and oriented. Also reported losing 70 pound weight loss in the last year for which PCP is currently working up on scheduling colonoscopy Likely etiology of encephalopathy was methadone use and hypertension. - Administered 500 mL NS x 1. -Continue Eliquis 5 mg twice daily, finasteride. -Decrease dose of methadone to 30 mg daily -Hold on Lasix, Coreg as patient is hypotensive - Resume fluconazole , ILDSS - Holding Jardiance due to renal dysfunction - Repeat TTE Time Spent with Patient Time: Total time spent is greater than 50% in coordination of care (as documented) at patient's floor/unit and/or counseling patient: Time with patient: Greater than 35 minutes Reason for Continued Stay Reason for continued stay: further dx testing Quality Measures Quality Measures none Advance care planning discussed with:: patient
[2025-05-29] MEDS: SODIUM CHLORIDE 0.9% 500 ML 500 ML 499 ML IV (11:40)
--- NOTE | 2025-05-29 12:25 | ECHO_ITS ---
Transthoracic Echo Report Ht (in): 77 Wt (lb): 135 Exam Location: Echo Lab Status: Inpatient Industrial Relations Worker: Ann Lester Indications: Procedure Performed: BP: 106 / 52 HR: 72 MEASUREMENTS (Male / Female) Normal Values 2D ECHO LV Diastolic Diameter PLAX 5.0 cm 4.2 - 5.9 / 3.9 - 5.3 cm LV Systolic Diameter PLAX 4.1 cm IVS Diastolic Thickness 0.7 cm 0.6 - 1.0 / 0.6 - 0.9 cm LVPW Diastolic Thickness 0.9 cm 0.6 - 1.0 / 0.6 - 0.9 cm LV Relative Wall Thickness 0.3 LVOT Diameter 1.9 cm Aortic Root Diameter 3.2 cm LA Systolic Diameter LX 4.7 cm 3.0 - 4.0 / 2.7 - 3.8 cm LV Ejection Fraction MOD BP 36.2 % >= 55 % LV Cardiac Index MOD BP 1772.0 cm?/min?m? LV Ejection Fraction MOD 4C 38.7 % LV Cardiac Index MOD 4C 2048.6 cm?/min?m? LV Ejection Fraction 4C AL 38.7 % LV Cardiac Index 4C AL 2131.8 cm?/min?m? LV Ejection Fraction MOD 2C 29.6 % LV Cardiac Index MOD 2C 1234.8 cm?/min?m? LV Ejection Fraction 2C AL 32.3 % LV Cardiac Index 2C AL 1369.0 cm?/min?m? LA Volume Index 56.4 cm?/m? 16 - 28 cm?/m? M-MODE Aortic Root Diameter MM 2.6 cm LA Systolic Diameter MM 5.4 cm LA Ao Ratio MM 2.1 AV Cusp Separation MM 1.7 cm DOPPLER AV Peak Velocity 105.0 cm/s AV Peak Gradient 4.4 mmHg AV Mean Gradient 2.0 mmHg AV Velocity Time Integral 20.1 cm LVOT Peak Velocity 65.0 cm/s LVOT Peak Gradient 1.7 mmHg LVOT Velocity Time Integral 11.4 cm LVOT Cardiac Index 1295.8 cm?/min?m? AV Area Cont Eq vti 1.6 cm? AV Area Cont Eq pk 1.8 cm? MR Peak Velocity 258.0 cm/s MR Peak Gradient 26.6 mmHg LV E' Lateral Velocity 9.3 cm/s LV E' Septal Velocity 5.1 cm/s TR Peak Velocity 216.5 cm/s TR Peak Gradient 18.7 mmHg PV Peak Velocity 58.4 cm/s PV Peak Gradient 1.4 mmHg FINDINGS Left Ventricle Normal left ventricular size, wall thickness. The ejection fraction is visually estimated at 35 %. Global left ventricular systolic function is moderately decreased. Right Ventricle The right ventricle is normal in size with mildly decreased systolic function Left Atrium Severely increased left atrial volume 56.4 mL/m?. Right Atrium The right atrium is normal by two-dimensional imaging, color flow and Doppler imaging with no structural abnormalities, no thrombus formation present. Atrial Septum The interatrial septum appears normal with no evidence of a shunt. Aorta The aorta is normal by two-dimensional, color flow and Doppler interrogation. Mitral Valve Mild mitral annular calcification. Trace mitral regurgitation. Aortic Valve The aortic valve is trileaflet and normal by two-dimensional, color flow and Doppler interrogation. There is no significant aortic valve regurgitation. Tricuspid Valve The tricuspid valve is normal by two-dimensional, color flow and Doppler interrogation. There is mild tricuspid valve regurgitation. Pulmonic Valve The pulmonic valve is not well visualized. There is no significant pulmonic valve regurgitation. Vessels Inferior vena cava not well visualized. Pericardium The pericardium is normal by two-dimensional imaging. There is no significant pericardial effusion. CONCLUSIONS Indication: HFrEF Normal LV size, wall thickness with moderate global hypokinesis . Estimated LVEF at 35% The RV is normal in size with mildly decreased systolic function. Pacemaker device wire visualized in the RV. Severely increased LA volume 56.4 mL/m?. Mild MAC. Trace MR. Mild TR with normal PA Pressure IVC not well visualized. Ewa Hernandez (Electronically Signed) Final Date: 30 May 2025 11:30
--- NOTE | 2025-05-29 12:31 | EKG_ITS ---
[facility] Test Date: 2025-05-29 Pat Name: BENNIE BHARDWAJ Department: Room: S273A Gender: Male Size Worker: CHRIS : 1955 Requested By: Lindsay Bailey Order Number: [id number] Reading MD: Lindsay Bailey Measurements Intervals [place] Rate: 56 P: RI: QRS: -89 QRSD: 208 T: 98 QT: 573 QTc: 554 Interpretive Statements ELECTRONIC VENTRICULAR PACEMAKER ABNORMAL RHYTHM ECG Compared to ECG 05/28/2025 18:11:39 Atrial fibrillation no longer present Ventricular premature complex(es) no longer present Aberrant conduction of supraventricular beat(s) no longer present T-wave abnormality no longer present Possible ischemia no longer present /store/S0/[id number]/ecg/[id number]
[2025-05-29] MEDS: INSULIN LISPRO (AdmeLOG) 1 UNIT/0.01 ML UNIT SC ×3 (12:49→20:59)
--- NOTE | 2025-05-29 13:28 | PC.SS ---
Rapid Response initiated due to low blood pressure. Medical team addressing situation. Care provider at bedside.
--- NOTE | 2025-05-29 15:37 | PC.SS ---
Rounding Note: Rapid response due to hypotension.
[2025-05-29] MEDS: MELATONIN 3 MG TABLET PO (20:59)
[2025-05-30] VITALS (7 sets, daily range): BP systolic 89–126; BP diastolic 53–66; PULSE 56–91; RESP 14–24; TEMP 35.9–36.4; O2SAT 94–99; BMI 16.0; BMI 14.0
[2025-05-30 06:10] LABS: Basophils # (Auto) 0.1 Thou/mm3 (0.0-0.2); Basophils % (Auto) 1 % (0-2.5); Eosinophils # (Auto) 0.3 Thou/mm3 (0.0-0.5); Eosinophils % (Auto) 3 % (0-10); Hematocrit 41.8 % (41.0-53.0); Hemoglobin 14.3 g/dL (13.5-16.0); Immature Granulocytes Auto 0.04 Thou/mm3 (0.00-0.00); Lymphocytes # (Auto) 2.5 Thou/mm3 (1.0-4.8); Lymphocytes % (Auto) 26 % (10-50); Mean Corpuscular HGB Conc 34.2 g/dl (31.0-37.0); Mean Corpuscular Hemoglobin 26.9 pg (25.0-35.0); Mean Corpuscular Volume 79 fL (80-100); Monocytes # (Auto) 1.0 Thou/mm3 (0.0-0.8); Monocytes % (Auto) 10 % (0-12); Neutrophils # (Auto) 5.7 Thou/mm3 (1.8-7.7); Neutrophils % (Auto) 60 % (37-80); Nucleated Red Blood Cell # 0.00 Thou/mm3 (0.00-0.00); Nucleated Red Blood Cell % 0 /100 WBC (0); Platelet Count 217 Thou/mm3 (140-440); RDW Standard Deviation 47.8 fL (35.1-43.9); Red Blood Count 5.32 Miln/mm3 (4.50-5.90); White Blood Count 9.6 Thou/mm3 (3.8-10.6)
[2025-05-30 06:31] LABS: Anion Gap 11 (7-16); BUN/Creatinine Ratio 27 Ratio (12-20); Blood Urea Nitrogen 46 mg/dL (9-23); Calcium 9.0 mg/dL (8.3-10.6); Carbon Dioxide 19.0 mMol/L (20.0-31.0); Chloride 100 mMol/L (98-107); Creatinine (Component) 1.7 mg/dL (0.6-1.3); Estimated Creatinine Clearance 35.1 mL/min (>60); Glucose 107 mg/dL (74-106); Magnesium 2.4 mg/dL (1.6-2.6); Osmolality,Calculated 272 (275-295); Potassium 4.5 mMol/L (3.4-5.1); Sodium 130 mMol/L (136-145); eGFR 43 See Note
[2025-05-30] MEDS: APIXABAN 2.5 MG TABLET 5 MG PO ×2 (08:47→20:54)
[2025-05-30] MEDS: TAMSULOSIN HCL 0.4 MG CAPSULE PO (08:47)
[2025-05-30] MEDS: FINASTERIDE 5 MG TABLET PO (08:48)
[2025-05-30] MEDS: METHADONE HCL 10 MG TABLET 30 MG PO (08:48)
[2025-05-30] MEDS: FLUCONAZOLE 100 MG TABLET 200 MG PO (10:27)
[2025-05-30] MEDS: INSULIN LISPRO (AdmeLOG) 1 UNIT/0.01 ML UNIT SC (12:01)
--- NOTE | 2025-05-30 13:23 | ESPR_ITS ---
Documentation for date of: 05/30/25 Subjective - Hospitalist Subjective Interval history: Remained hemodynamically stable. No active chest pain or shortness of breath. Intermittently waxing and waning mentation with forgetfulness. Review of Systems Review of Systems Narrative Review of Systems: Negative except as above Exam Vital Signs Temp Pulse Resp BP Pulse Ox O2 Del Method 97.2 F 60 14 126/63 96 Room Air 05/30/25 12:00 05/30/25 12:00 05/30/25 12:00 05/30/25 12:00 05/30/25 12:00 05/30/25 12:00 Additional findings Additional findings: General: Elderly, Frail, AAO x3 though forgetful. Eye: Normal conjunctiva, no scleral icterus HENT: Normocephalic, atraumatic, hearing intact to conversation at normal volume, moist oral mucosa Neck: Supple, non-tender, no JVD, no lymphadenopathy Lungs: Non-labored respirations, symmetric chest rise, Clear to auscultate bilaterally, No wheezing, rhonchi, crackles Heart: Peripheral pulses intact bilaterally, Regular Rate and Rhythm. Abdomen: Soft, non-tender, non-distended, no palpable masses Musculoskeletal: Normal range of motion and strength, No cyanosis or edema, No visible joint swelling Skin: Skin is warm, dry, no rashes or lesions. Psychiatric: Cooperative, appropriate mood and affect, Awake and alert, not agitated Neuro: Left upper extremity contractures and weakness which is chronic. Objective - Hospitalist Labs Diagram: 05/30/25 05:50 05/30/25 05:50 Labs: Laboratory Results - last 24 hr 05/30/25 05:50 WBC 9.6 RBC 5.32 Hgb 14.3 Hct 41.8 MCV 79 L MCH 26.9 MCHC 34.2 RDW Std Deviation 47.8 H Plt Count 217 D Neut % (Auto) 60 Lymph % (Auto) 26 [place] % (Auto) 10 Eos % (Auto) 3 Baso % (Auto) 1 Neut # (Auto) 5.7 Lymph # (Auto) 2.5 [place] # (Auto) 1.0 H Eos # (Auto) 0.3 Baso # (Auto) 0.1 Immature Gran # (Auto) 0.04 H Absolute Nucleated RBC 0.00 Immature Gran % 0 Nucleated RBC % 0 Sodium 130 L Potassium 4.5 Chloride 100 Carbon Dioxide 19.0 L Anion Gap 11 BUN 46 H Creatinine 1.7 H D Estim Creat Clear Calc 35.1 L eGFR 43 L BUN/Creatinine Ratio 27 H Glucose 107 H Calculated Osmolality 272 L Calcium 9.0 Magnesium 2.4 Assessment & Plan Patient Synopsis A 69-year-old Hx of HTN, DM, CHF, CVA, AICD in place came from the methadone clinic where he was noted to be short of breath and more confused than his baseline with reported falls at home. Patient was admitted for KATE, potential metabolic encephalopathy and suspected heart failure. noted to have elevated troponin plateaued peaked at 0.102, with EKG revealing nonspecific ST-T wave changes. Head CT unremarkable, UA clear. CXR did not reveal any pulmonary edema or infiltrates. US KUB revealed medical renal disease, creatinine worsened to 1.7. However persistently low sodium 130s. TTE did reveal reduced ejection fraction 35%, pending MRI brain Also reported losing 70 pound weight loss in the last year for which PCP is currently working up on scheduling colonoscopy Likely etiology of encephalopathy is methadone use and hypotension due to polypharmacy however need to rule out potential malignancy in the setting of significant weight loss and rapidly deteriorating mentation. Active issues: Acute encephalopathy-improved, pending brain MRI NSTEMI-pending cardiology evaluation Adult FTT -70 LBS weight loss in last 6-8 months Recurrent hypotension Polypharmacy including methadone use DM -Continue Eliquis 5 mg twice daily, finasteride. -Decrease dose of methadone to 30 mg daily - Will start on metoprolol 12.5 mg twice daily -Hold on Lasix, Coreg as patient becomes recurrently hypotensive - Resume fluconazole , ILDSS - Holding Jardiance due to renal dysfunction - Follow-up with cardiology recommendations, AICD interrogation, MRI brain Time Spent with Patient Time: Total time spent is greater than 50% in coordination of care (as documented) at patient's floor/unit and/or counseling patient: Time with patient: 25 - 35 minutes Reason for Continued Stay Reason for continued stay: further monitoring Quality Measures Quality Measures none Advance care planning discussed with:: patient
[2025-05-31] VITALS (10 sets, daily range): BP systolic 85–113; BP diastolic 46–73; PULSE 52–79; RESP 15–19; TEMP 35.9–36.5; O2SAT 91–97; BMI 16.5
[2025-05-31] MEDS: INSULIN LISPRO (AdmeLOG) 1 UNIT/0.01 ML UNIT SC ×2 (08:16→20:34)
[2025-05-31] MEDS: METHADONE HCL 10 MG TABLET 30 MG PO (08:17)
[2025-05-31] MEDS: APIXABAN 2.5 MG TABLET 5 MG PO ×2 (08:18→20:30)
[2025-05-31] MEDS: TAMSULOSIN HCL 0.4 MG CAPSULE PO (08:18)
[2025-05-31] MEDS: FINASTERIDE 5 MG TABLET PO (08:18)
[2025-05-31] MEDS: FLUCONAZOLE 100 MG TABLET 200 MG PO (08:18)
[2025-05-31 09:53] LABS: Basophils # (Auto) 0.0 Thou/mm3 (0.0-0.2); Basophils % (Auto) 0 % (0-2.5); Eosinophils # (Auto) 0.3 Thou/mm3 (0.0-0.5); Eosinophils % (Auto) 3 % (0-10); Hematocrit 39.7 % (41.0-53.0); Hemoglobin 13.0 g/dL (13.5-16.0); Immature Granulocytes Auto 0.04 Thou/mm3 (0.00-0.00); Lymphocytes # (Auto) 2.1 Thou/mm3 (1.0-4.8); Lymphocytes % (Auto) 20 % (10-50); Mean Corpuscular HGB Conc 32.7 g/dl (31.0-37.0); Mean Corpuscular Hemoglobin 26.5 pg (25.0-35.0); Mean Corpuscular Volume 81 fL (80-100); Monocytes # (Auto) 0.9 Thou/mm3 (0.0-0.8); Monocytes % (Auto) 9 % (0-12); Neutrophils # (Auto) 6.9 Thou/mm3 (1.8-7.7); Neutrophils % (Auto) 67 % (37-80); Nucleated Red Blood Cell # 0.00 Thou/mm3 (0.00-0.00); Nucleated Red Blood Cell % 0 /100 WBC (0); Platelet Count 207 Thou/mm3 (140-440); RDW Standard Deviation 49.6 fL (35.1-43.9); Red Blood Count 4.90 Miln/mm3 (4.50-5.90); White Blood Count 10.3 Thou/mm3 (3.8-10.6)
[2025-05-31 10:21] LABS: Alanine Aminotransferase 9 U/L (10-49); Albumin, Serum 3.5 gm/dL (3.4-4.8); Albumin/Globulin Ratio 1.0 (1.2-2.2); Alkaline Phosphatase 69 U/L (46-116); Anion Gap 9 (7-16); Aspartate Amino Transferase 17 U/L (0-34); BUN/Creatinine Ratio 31 Ratio (12-20); Bilirubin,Total 0.4 mg/dL (0.3-1.2); Blood Urea Nitrogen 49 mg/dL (9-23); Calcium 8.9 mg/dL (8.3-10.6); Calcium (Corrected) 9.3 mg/dL (8.5-10.1); Carbon Dioxide 21.8 mMol/L (20.0-31.0); Chloride 99 mMol/L (98-107); Creatinine (Component) 1.6 mg/dL (0.6-1.3); Estimated Creatinine Clearance 38.4 mL/min (>60); Globulin 3.6 gm/dL (2.3-3.5); Glucose 185 mg/dL (74-106); Magnesium 2.4 mg/dL (1.6-2.6); Osmolality,Calculated 278 (275-295); Phosphorous 3.8 mg/dL (2.4-5.1); Potassium 4.7 mMol/L (3.4-5.1); Sodium 130 mMol/L (136-145); Total Protein 7.1 gm/dL (5.7-8.2); eGFR 46 See Note
--- NOTE | 2025-05-31 11:00 | PC.SS ---
Rounding: Neuro consult, MRI pending and Cardio reccs
--- NOTE | 2025-05-31 12:54 | PC.SS ---
SS contacted pt dtr Sneha Lama in regards to DC planning HH vs SNF. Sneha expressed they are willining to go to SNF/Rehab for short term. Pt has not done well with PT as of yesterdays note only walking 10ft. SS to submit referral today and follow up with dtr and pt tomorrow with choices to start insurance auth process.
--- NOTE | 2025-05-31 13:02 | ESCONSULT_ITS ---
<Statement entered by Gilles Keys MD - 06/05/25 13:29> I personally examined the patient and evaluated the patient was known history of HFrEF cardiomyopathy congestive heart failure patient is admitted to hospital with altered mental status HFrEF recommend guideline directed medical management evaluated patient with resident physician PGY [address] Dr. Jacobo BRODERICK agree with the treatment plan recommendation as documentedThe patient had mild troponin elevation but no cardiac symptoms chest pain appears to be type II troponin elevation HPI Data of Consult Requesting Physician: Lindsay Solitario MD Admitting Provider: Cheo Eubanks MD Attending Provider: Lindsay Solitario MD Primary Care Provider: Roque Leonard MD Consult Narrative History of present illness: 69-year-old male with history of HFrEF (EF 35% on 05/2025) status post AICD, atrial fibrillation on eliquis, CVA, hypertension, type 2 diabetes mellitus, BPH, chronic pain on methadone who presented from methadone clinic with acute encephalopathy and shortness of breath. At time of interview, when asked who placed AICD, patient replied everyone and was alert and oriented to name/place/birthdate but not year. Given that patient cannot provide accurate history, it was obtained via chart review. Upon admission, caregiver was present at bedside and stated that he was not at his baseline at methadone clinic. Primary team attempted to get in touch with patient's daughter but were unsuccessful. Initial suspicion for methadone induced encephalopathy as initial CT head on admission was unremarkable for any acute findings but old infarct in left caudate nucleus was present, consistent with history of CVA. However, mentation has not improved and now pending MRI brain. Cardiology consulted in setting of HFrEF status post AICD/pacemaker placement and interrogation of device. cc:: cc: Lindsay Solitario MD Review of Systems Review of Systems Systems Reviewed: All systems reviewed, normal except as documented Exam Vital Signs Temp Pulse Resp BP Pulse Ox O2 Del Method 97.6 F 57 L 15 103/65 96 Room Air 05/31/25 11:53 05/31/25 11:53 05/31/25 11:53 05/31/25 11:53 05/31/25 11:53 05/31/25 11:53 Narrative Exam General: Alert and oriented to name/place/birthdate but not year, no acute distress, able to speak full sentences HEENT: NC/AT, mucous membranes moist, bilateral sclera anicteric Cardiovascular: irregular rhythm, S1/S2 present, no murmurs appreciated Pulmonary: clear to auscultation bilaterally, no rales/rhonchi/wheezes Abdominal: soft, non-tender, non-distended, no rebound/guarding, normal bowel sounds present Musculoskeletal: no peripheral edema Skin: warm and dry, intact, no rashes Neuro: CN II-XII intact, unable to lift left arm secondary to previous CVA Results Labs 06/02/25 05:24 06/02/25 05:24 Labs: Short CBC 05/31/25 Range/Units 08:46 WBC 10.3 (3.8-10.6) Thou/mm3 Hgb 13.0 L (13.5-16.0) g/dL Hct 39.7 L (41.0-53.0) % Plt Count 207 (140-440) Thou/mm3 BMP 05/31/25 08:46 Sodium 130 L Potassium 4.7 Chloride 99 Carbon Dioxide 21.8 BUN 49 H Creatinine 1.6 H Glucose 185 H D Calcium 8.9 Liver Function 05/31/25 Range/Units 08:46 Total Bilirubin 0.4 (0.3-1.2) mg/dL AST 17 (0-34) U/L ALT 9 L (10-49) U/L Alkaline Phosphatase 69 (46-116) U/L Albumin 3.5 (3.4-4.8) gm/dL Quality Measures Quality Measures none Advance care planning discussed with:: patient Medications Home Medications and Allergies Home Medications ?Medication ?Instructions ?Recorded ?Confirmed ?Type apixaban 5 mg tablet (Eliquis) 5 mg PO Q12H 05/28/25 1 History atorvastatin 20 mg tablet 20 mg PO DAILY 05/28/2505/13 History carvedilol 6.25 mg tablet 6.25 mg PO Q12H 05/28/25 History empagliflozin 25 mg tablet 25 mg PO DAILY 05/28/25 History (Jardiance) finasteride 5 mg tablet 5 mg PO DAILY 05/28/2505/28 History fluconazole 200 mg tablet 200 mg PO QDAY 05/28/2505/13 History furosemide 40 mg tablet (Lasix) 40 mg PO QDAY 05/28/25 05/28/25 History linaclotide 145 mcg capsule 145 mcg PO .with meals 05/28/25 History (Linzess) loratadine 10 mg tablet (Allergy 10 mg PO Q24H 5 05/28/25 History Relief (loratadine)) metformin 1,000 mg tablet 1,000 mg PO Q12H 05/28/25 History methadone 60 mg PO QDAY 05/28/2505/28 History omeprazole 20 mg capsule,delayed 40 mg PO DAILY 05/28/25 History release semaglutide 0.25 mg or 0.5 mg (2 0.25 mg subcut .weekl y 05/28/25 05/28/25 History mg/3 mL) subcutaneous pen injector (Ozempic) tamsulosin 0.4 mg capsule 0.4 mg PO Q24H 05/28/2505/13 History triamterene 37.5 1 tab PO DAILY 05/28/2505/13 History mg-hydrochlorothiazide 25 mg tablet Allergies Allergy/AdvReac Type Severity Reaction Status Date / Time No Known Allergies Allergy Verified 05/29/25 20:03 Visit Medications Acetaminophen (Acetaminophen 325 Mg Tablet) 650 mg PO Q6H PRN PRN Reason: Fever >101.5 Stop: 06/26/25 20:33 Al Hydrox/Mg Hydrox/Simethicone (Mg Hyd/Al Hyd/Nelida (Maalox Reg) Susp 30 Ml Udc) 30 ml PO Q6H PRN PRN Reason: Indigestion Stop: 06/26/25 20:33 Apixaban (Apixaban 2.5 Mg Tablet) 5 mg PO BID AMANDA Stop: 06/27/25 08:59 Last Admin: 05/31/25 08:18 Dose: 5 mg Dextrose (Dextrose 50%-Water Inj 50 Ml Syringe) 25 ml IV Q15MIN PRN PRN Reason: BG 50-70 responsive npo pt Stop: 06/27/25 14:49 Dextrose (Dextrose 50%-Water Inj 50 Ml Syringe) 50 ml IV Q15MIN PRN PRN Reason: BG <50 OR BG <70 & pt unresponsive Stop: 06/27/25 14:49 Finasteride (Finasteride 5 Mg Tablet) 5 mg PO QDAY [facility] Stop: 06/27/25 08:59 Last Admin: 05/31/25 08:18 Dose: 5 mg Fluconazole (Fluconazole 100 Mg Tablet) 200 mg PO QDAY [facility] Stop: 06/06/25 09:59 Last Admin: 05/31/25 08:18 Dose: 200 mg Glucagon (Glucagon Inj 1 Mg Vial) 1 mg IM Q15MIN PRN PRN Reason: BG <70, and no IV access Insulin Human Lispro (Insulin Lispro (Admelog) 1 Unit/0.01 Ml Unit) 0 unit SC ACHS [facility]; Protocol Stop: 06/27/25 16:59 Last Admin: 05/31/25 11:57 Dose: Not Given Methadone HCl (Methadone Hcl 10 Mg Tablet) 30 mg PO QDAY [facility]; Protocol Stop: 06/04/25 08:59 Last Admin: 05/31/25 08:17 Dose: 30 mg Metoprolol Tartrate (Metoprolol Tartrate 25 Mg Tablet) 12.5 mg PO BID [facility] Stop: 06/29/25 13:29 Last Admin: 05/31/25 08:23 Dose: Not Given Ondansetron HCl (Ondansetron Inj 2 Mg/Ml Inj 2 Ml) 4 mg IVP Q6H PRN; Protocol PRN Reason: NAUSEA OR VOMITING Stop: 06/26/25 20:33 Sennosides (Senna Tablet) 1 tab PO QDAY [facility]; Protocol Stop: 06/27/25 08:59 Last Admin: 05/31/25 08:18 Dose: 1 tab Tamsulosin HCl (Tamsulosin Hcl 0.4 Mg Capsule) 0.4 mg PO QDAY [facility] Stop: 06/27/25 08:59 Last Admin: 05/31/25 08:18 Dose: 0.4 mg Discontinued Medications Bisacodyl (Bisacodyl 10 Mg Supp) 10 mg CO X1 ONE; Protocol Stop: 05/28/25 08:08 Last Admin: 05/28/25 09:48 Dose: 10 mg Lactated Ringer's (Lactated Ringers) 1,000 mls @ 75 mls/hr IV .[id number] [facility] Stop: 06/26/25 20:44 Last Infusion: 05/28/25 10:00 Dose: 0 mls/hr Magnesium Sulfate (Magnesium Sulfate Ivpb) 4 gm in 50 mls @ 12.5 mls/hr IV X1 ONE Stop: 05/28/25 11:57 Last Infusion: 05/28/25 13:44 Dose: Infused Sodium Chloride (Ns) 250 mls @ 999 mls/hr IV .Q16M ONE Stop: 05/28/25 15:38 Last Admin: 05/28/25 15:40 Dose: 999 mls/hr Sodium Chloride (Ns) 500 mls @ 499 mls/hr IV .Q1H1M ONE Stop: 05/29/25 12:35 Last Admin: 05/29/25 11:40 Dose: 499 mls/hr Influenza Virus Vaccine Quadrival (Influenza Virus Quadrivalent 0.5 Ml Syringe) 0.5 ml IMi .ONCE ONE Stop: 05/28/25 00:16 Last Admin: 05/28/25 14:00 Dose: Not Given Lorazepam (Lorazepam 0.5 Mg Tablet) 2 mg PO X1 ONE Stop: 05/27/25 12:28 Last Admin: 05/27/25 12:30 Dose: Not Given Meclizine HCl (Meclizine Hcl 25 Mg Tablet) 25 mg PO X1 ONE Stop: 05/28/25 20:23 Last Admin: 05/28/25 20:30 Dose: 25 mg Melatonin (Melatonin 3 Mg Tablet) 3 mg PO X1 ONE Stop: 05/29/25 20:55 Last Admin: 05/29/25 20:59 Dose: 3 mg Methadone HCl (Methadone Hcl 10 Mg Tablet) 60 mg PO QDAY [facility]; Protocol Stop: 06/28/25 08:59 Last Admin: 05/29/25 08:14 Dose: 60 mg Metoprolol Tartrate (Metoprolol Tartrate 25 Mg Tablet) 12.5 mg PO BID AMANDA Stop: 06/29/25 13:29 Last Admin: 05/30/25 15:19 Dose: Not Given Polyethylene Glycol (Polyethylene Glycol 17 Gm Packet) 17 gm PO X1 ONE Stop: 05/28/25 08:08 Last Admin: 05/28/25 09:48 Dose: 17 gm Assessment & Plan Plan 69-year-old male with history of HFrEF status post AICD, atrial fibrillation on eliquis, CVA, hypertension, type 2 diabetes mellitus, BPH, chronic pain on methadone who is admitted for acute encephalopathy and cardiology consulted for NSTEMI II and AICD interrogation. #HFrEF (EF 35%, 05/2025) s/p AICD #NSTEMI type II Echo on 05/2025 showed normal LV size and wall thickness but moderate global hypokinesis, EF 35%. RV normal in size but mildly decreased systolic function. Severely increased LA volume. Home medications include Coreg, empagliflozin, Lasix. ? Pending device interrogation in setting of acute encephalopathy and MRI compatibility #Atrial fibrillation versus flutter ? Eliquis 5 mg p.o. twice daily ? Metoprolol tartrate 12.5 mg twice daily #Acute encephalopathy #KATE #Type 2 diabetes mellitus #BPH #Chronic pain on methadone ? Continue management per primary team ----- Plan discussed with attending physician Dr. Massimo Broderick MD PGY-2 Internal Medicine
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
--- NOTE | 2025-05-31 13:33 | PC.SS ---
[facility] LVL1 completed and downloaded.
[2025-06-01] VITALS (8 sets, daily range): BP systolic 101–136; BP diastolic 56–64; PULSE 55–84; RESP 17–22; TEMP 36.1–36.5; O2SAT 94–96; BMI 17.0; BMI 15.0
[2025-06-01 06:43] LABS: Basophils # (Auto) 0.1 Thou/mm3 (0.0-0.2); Basophils % (Auto) 1 % (0-2.5); Eosinophils # (Auto) 0.3 Thou/mm3 (0.0-0.5); Eosinophils % (Auto) 3 % (0-10); Hematocrit 40.9 % (41.0-53.0); Hemoglobin 14.1 g/dL (13.5-16.0); Immature Granulocytes Auto 0.02 Thou/mm3 (0.00-0.00); Lymphocytes # (Auto) 2.0 Thou/mm3 (1.0-4.8); Lymphocytes % (Auto) 21 % (10-50); Mean Corpuscular HGB Conc 34.5 g/dl (31.0-37.0); Mean Corpuscular Hemoglobin 27.5 pg (25.0-35.0); Mean Corpuscular Volume 80 fL (80-100); Monocytes # (Auto) 0.9 Thou/mm3 (0.0-0.8); Monocytes % (Auto) 9 % (0-12); Neutrophils # (Auto) 6.7 Thou/mm3 (1.8-7.7); Neutrophils % (Auto) 67 % (37-80); Nucleated Red Blood Cell # 0.00 Thou/mm3 (0.00-0.00); Nucleated Red Blood Cell % 0 /100 WBC (0); Platelet Count 187 Thou/mm3 (140-440); RDW Standard Deviation 49.3 fL (35.1-43.9); Red Blood Count 5.12 Miln/mm3 (4.50-5.90); White Blood Count 10.0 Thou/mm3 (3.8-10.6)
[2025-06-01 06:56] LABS: Alanine Aminotransferase 11 U/L (10-49); Albumin, Serum 3.6 gm/dL (3.4-4.8); Albumin/Globulin Ratio 0.9 (1.2-2.2); Alkaline Phosphatase 73 U/L (46-116); Anion Gap 10 (7-16); Aspartate Amino Transferase 22 U/L (0-34); BUN/Creatinine Ratio 57 Ratio (12-20); Bilirubin,Total 0.4 mg/dL (0.3-1.2); Blood Urea Nitrogen 68 mg/dL (9-23); Calcium 9.0 mg/dL (8.3-10.6); Calcium (Corrected) 9.3 mg/dL (8.5-10.1); Carbon Dioxide 21.7 mMol/L (20.0-31.0); Chloride 101 mMol/L (98-107); Creatinine (Component) 1.2 mg/dL (0.6-1.3); Estimated Creatinine Clearance 53.1 mL/min (>60); Globulin 3.8 gm/dL (2.3-3.5); Glucose 93 mg/dL (74-106); Magnesium 2.0 mg/dL (1.6-2.6); Osmolality,Calculated 286 (275-295); Phosphorous 3.4 mg/dL (2.4-5.1); Potassium 5.6 mMol/L (3.4-5.1); Sodium 133 mMol/L (136-145); Total Protein 7.4 gm/dL (5.7-8.2); eGFR > 60 See Note
--- NOTE | 2025-06-01 08:45 | ESPR_ITS ---
<Statement entered by Gilles Keys MD - 06/05/25 13:31> I personally examined evaluated the patient with resident physician PGY 2 Dr[address] Jacobo Broderick MD patient is recommended continue medical medical management. Patient has [employer] ICD device MRI safe can have MRI scan Documentation for date of: 06/01/25 Subjective Subjective Interval history: No acute overnight events. Seen and examined at bedside resting comfortably in bed and states that he experiences palpitations but no chest discomfort or shortness of breath. Attempted to interrogate AICD/pacemaker with [employer] but unsuccessful. Will attempt to interrogate with [employer]. Telemetry reviewed and remarkable for sinus bradycardia with pulse in 50s, other vitals stable. Exam Vital Signs Temp Pulse Resp BP Pulse Ox O2 Del Method 97.5 F 62 19 101/56 L 96 Room Air 06/01/25 08:00 06/01/25 08:00 06/01/25 08:00 06/01/25 08:00 06/01/25 08:00 06/01/25 08:00 Narrative Exam General: Alert and oriented to name and birthdate but not year or place, no acute distress, able to speak full sentences HEENT: NC/AT, mucous membranes moist, bilateral sclera anicteric Cardiovascular: irregular rhythm, S1/S2 present, no murmurs appreciated Pulmonary: clear to auscultation bilaterally, no rales/rhonchi/wheezes Abdominal: soft, non-tender, non-distended, no rebound/guarding, normal bowel sounds present Musculoskeletal: no peripheral edema Skin: warm and dry, intact, no rashes Neuro: CN II-XII intact, unable to lift left arm secondary to previous CVA Objective Labs 06/02/25 05:24 06/02/25 05:24 Labs: Laboratory Results - last 24 hr 05/31/25 06/01/25 08:46 04:33 WBC 10.3 10.0 RBC 4.90 5.12 Hgb 13.0 L 14.1 Hct 39.7 L 40.9 L MCV 81 80 MCH 26.5 27.5 MCHC 32.7 34.5 RDW Std Deviation 49.6 H 49.3 H Plt Count 207 187 Neut % (Auto) 67 67 Lymph % (Auto) 20 21 [place] % (Auto) 9 9 Eos % (Auto) 3 3 Baso % (Auto) 0 1 Neut # (Auto) 6.9 6.7 Lymph # (Auto) 2.1 2.0 [place] # (Auto) 0.9 H 0.9 H Eos # (Auto) 0.3 0.3 Baso # (Auto) 0.0 0.1 Immature Gran # (Auto) 0.04 H 0.02 H Absolute Nucleated RBC 0.00 0.00 Immature Gran % 0 0 Nucleated RBC % 0 0 Sodium 130 L 133 L Potassium 4.7 5.6 H D Chloride 99 101 Carbon Dioxide 21.8 21.7 Anion Gap 9 10 BUN 49 H 68 H Creatinine 1.6 H 1.2 Estim Creat Clear Calc 38.4 L 53.1 L eGFR 46 L > 60 BUN/Creatinine Ratio 31 H 57 H Glucose 185 H D 93 D Calculated Osmolality 278 286 Calcium 8.9 9.0 Corrected Calcium 9.3 9.3 Phosphorus 3.8 3.4 Magnesium 2.4 2.0 Total Bilirubin 0.4 0.4 AST 17 22 ALT 9 L 11 Alkaline Phosphatase 69 73 Total Protein 7.1 7.4 Albumin 3.5 3.6 Globulin 3.6 H 3.8 H Albumin/Globulin Ratio 1.0 L 0.9 L Quality Measures Quality Measures none Advance care planning discussed with:: patient Assessment & Plan Assessment Current Active Medications: Generic Name Dose Route Start Last Admin Trade Name Freq PRN Reason Stop Dose Admin Acetaminophen 650 mg 05/27/25 20:34 Acetaminophen 325 Mg Tablet PO 06/26/25 20:33 Q6H PRN Fever >101.5 Al Hydrox/Mg Hydrox/Simethicone 30 ml 05/27/25 20:34 Mg Hyd/Al Hyd/Nelida (Maalox Reg) Susp 30 Ml Udc PO 06/26/25 20:33 Q6H PRN Indigestion Apixaban 5 mg 05/28/25 09:00 05/31/25 20:30 Apixaban 2.5 Mg Tablet PO 06/27/25 08:59 5 mg BID AMANDA Administration Dextrose 25 ml 05/28/25 14:50 Dextrose 50%-Water Inj 50 Ml Syringe IV 06/27/25 14:49 Q15MIN PRN BG 50-70 responsive npo pt Dextrose 50 ml 05/28/25 14:50 Dextrose 50%-Water Inj 50 Ml Syringe IV 06/27/25 14:49 Q15MIN PRN BG <50 OR BG <70 & pt unresponsive Finasteride 5 mg 05/28/25 09:00 05/31/25 08:18 Finasteride 5 Mg Tablet PO 06/27/25 08:59 5 mg QDAY AMANDA Administration Fluconazole 200 mg 05/30/25 10:00 05/31/25 08:18 Fluconazole 100 Mg Tablet PO 06/06/25 09:59 200 mg QDAY AMANDA Administration Glucagon 1 mg 05/28/25 14:50 Glucagon Inj 1 Mg Vial IM Q15MIN PRN BG <70, and no IV access Insulin Human Lispro 0 unit 05/28/25 17:00 06/01/25 07:18 Insulin Lispro (Admelog) 1 Unit/0.01 Ml Unit SC 06/27/25 16:59 Not Given ACHS AMANDA Protocol Methadone HCl 30 mg 05/30/25 09:00 05/31/25 08:17 Methadone Hcl 10 Mg Tablet PO 06/04/25 08:59 30 mg QDAY AMANDA Administration Protocol Metoprolol Tartrate 12.5 mg 05/30/25 14:47 05/31/25 20:25 Metoprolol Tartrate 25 Mg Tablet PO 06/29/25 13:29 Not Given BID AMANDA Ondansetron HCl 4 mg 05/27/25 20:34 Ondansetron Inj 2 Mg/Ml Inj 2 Ml IVP 06/26/25 20:33 Q6H PRN NAUSEA OR VOMITING Protocol Sennosides 1 tab 05/28/25 09:00 05/31/25 08:18 Senna Tablet PO 06/27/25 08:59 1 tab QDAY AMANDA Administration Protocol Tamsulosin HCl 0.4 mg 05/28/25 09:00 05/31/25 08:18 Tamsulosin Hcl 0.4 Mg Capsule PO 06/27/25 08:59 0.4 mg QDAY AMANDA Administration Plan 69-year-old male with history of HFrEF status post AICD, atrial fibrillation on eliquis, CVA, hypertension, type 2 diabetes mellitus, BPH, chronic pain on methadone who is admitted for acute encephalopathy and cardiology consulted for NSTEMI II and AICD interrogation. #HFrEF (EF 35%, 05/2025) s/p AICD #NSTEMI type II Echo on 05/2025 showed normal LV size and wall thickness but moderate global hypokinesis, EF 35%. RV normal in size but mildly decreased systolic function. Severely increased LA volume. Home medications include Coreg, empagliflozin, Lasix. Attempted to interrogate AICD/pacemaker with [employer] but unsuccessful. Will attempt to interrogate with [employer]. ? Pending device interrogation in setting of acute encephalopathy and MRI compatibility #Atrial fibrillation versus flutter ? Eliquis 5 mg p.o. twice daily ? Metoprolol tartrate 12.5 mg twice daily #Acute encephalopathy #KATE #Type 2 diabetes mellitus #BPH #Chronic pain on methadone ? Continue management per primary team ----- Plan discussed with attending physician Dr. Massimo Broderick MD PGY-2 Internal Medicine
[2025-06-01] MEDS: METHADONE HCL 10 MG TABLET 30 MG PO (09:33)
[2025-06-01] MEDS: METOPROLOL TARTRATE 25 MG TABLET 12.5 MG PO (09:34)
[2025-06-01] MEDS: FINASTERIDE 5 MG TABLET PO (09:34)
[2025-06-01] MEDS: TAMSULOSIN HCL 0.4 MG CAPSULE PO (09:34)
[2025-06-01] MEDS: FLUCONAZOLE 100 MG TABLET 200 MG PO (09:35)
[2025-06-01] MEDS: APIXABAN 2.5 MG TABLET 5 MG PO ×2 (09:35→20:28)
[2025-06-01] MEDS: INSULIN HUM REGULAR 1 UNIT/0.01 ML (PER UNIT) 5 UNIT IV (09:36)
[2025-06-01] MEDS: DEXTROSE 50%-WATER INJ 50 ML SYRINGE IVP (09:37)
[2025-06-01] MEDS: SOD POLYSTYRENE SULFON SUSP 15 GM/60 ML BTL PO (09:38)
--- NOTE | 2025-06-01 10:12 | PC.SS ---
Update: Cardiology recommendations are pending. Patient in possession of pacemaker.
[2025-06-01] MEDS: RINGERS LACTATED 500 ML 500 ML 50 ML IV (10:26)
--- NOTE | 2025-06-01 13:12 | ESPR_ITS ---
<Statement entered by Thiago Pickering MD - 06/01/25 16:46> Patient seen and assessed in hospital bed continues to be alert oriented x 1 (to person but not to place or purpose). Patient's echo results show an EF of 35% patient. Cardiology has been consulted regarding pacemaker interrogation as the patient is requiring MRI to rule out BELL SPINNER lesion, metastasis or microvascular changes secondary to the encephalopathy which at this time is believed to be secondary to underlying dementia. Will continue waiting for MRI as we will need to rule out metastasis. Neurology has been consulted for recommendations as well. Will continue monitoring the patient for any acute changes in mental status. I have personally seen and examined the patient. I agree with the resident's assessment and plan as documented below. Thiago Pickering DO PGY-2 Internal Medicine - [facility] Documentation for date of: 06/01/25 Subjective Subjective Interval history: No Overnight events. Labs reviewed and patient examined at the bedside. Currently pending brain MRI without contrast. Started IVF LR 50 mL/h for 500 mL as a patient looked hypovolemic. Denies chest pain, palpation, SOB, abdominal pain, N/V, fevers or chills. Exam Vital Signs Temp Pulse Resp BP Pulse Ox O2 Del Method 97.5 F 62 19 101/56 L 96 Room Air 06/01/25 08:00 06/01/25 09:34 06/01/25 08:00 06/01/25 09:34 06/01/25 08:00 06/01/25 08:00 Narrative Exam General: Elderly, Frail, AAO x2 Eye: Normal conjunctiva, no scleral icterus HENT: Normocephalic, atraumatic, hearing intact to conversation at normal volume, moist oral mucosa Neck: Supple, non-tender, no JVD, no lymphadenopathy Lungs: Non-labored respirations, symmetric chest rise, Clear to auscultate bilaterally, No wheezing, rhonchi, crackles Heart: Peripheral pulses intact bilaterally, Regular Rate and Rhythm. Abdomen: Soft, non-tender, non-distended, no palpable masses Musculoskeletal: Normal range of motion and strength, No cyanosis or edema, No visible joint swelling Skin: Skin is warm, dry, no rashes or lesions. Psychiatric: Cooperative, appropriate mood and affect, Awake and alert, not agitated Neuro: Cranial nerves II-XII grossly intact. Sensations intact to light touch. M uscle strength 1/5 on left arm, 5/5 muscle strength on right arm. Objective Labs 06/01/25 04:33 06/01/25 13:05 Labs: Laboratory Results - last 24 hr 06/01/25 04:33 WBC 10.0 RBC 5.12 Hgb 14.1 Hct 40.9 L MCV 80 MCH 27.5 MCHC 34.5 RDW Std Deviation 49.3 H Plt Count 187 Neut % (Auto) 67 Lymph % (Auto) 21 [place] % (Auto) 9 Eos % (Auto) 3 Baso % (Auto) 1 Neut # (Auto) 6.7 Lymph # (Auto) 2.0 [place] # (Auto) 0.9 H Eos # (Auto) 0.3 Baso # (Auto) 0.1 Immature Gran # (Auto) 0.02 H Absolute Nucleated RBC 0.00 Immature Gran % 0 Nucleated RBC % 0 Sodium 133 L Potassium 5.6 H D Chloride 101 Carbon Dioxide 21.7 Anion Gap 10 BUN 68 H Creatinine 1.2 Estim Creat Clear Calc 53.1 L eGFR > 60 BUN/Creatinine Ratio 57 H Glucose 93 D Calculated Osmolality 286 Calcium 9.0 Corrected Calcium 9.3 Phosphorus 3.4 Magnesium 2.0 Total Bilirubin 0.4 AST 22 ALT 11 Alkaline Phosphatase 73 Total Protein 7.4 Albumin 3.6 Globulin 3.8 H Albumin/Globulin Ratio 0.9 L Quality Measures Quality Measures none Advance care planning discussed with:: patient and other Assessment & Plan Assessment Current Active Medications: Generic Name Dose Route Start Last Admin Trade Name Freq PRN Reason Stop Dose Admin Acetaminophen 650 mg 05/27/25 20:34 Acetaminophen 325 Mg Tablet PO 06/26/25 20:33 Q6H PRN Fever >101.5 Al Hydrox/Mg Hydrox/Simethicone 30 ml 05/27/25 20:34 Mg Hyd/Al Hyd/Nelida (Maalox Reg) Susp 30 Ml Udc PO 06/26/25 20:33 Q6H PRN Indigestion Apixaban 5 mg 05/28/25 09:00 06/01/25 09:35 Apixaban 2.5 Mg Tablet PO 06/27/25 08:59 5 mg BID AMANDA Administration Dextrose 25 ml 05/28/25 14:50 Dextrose 50%-Water Inj 50 Ml Syringe IV 06/27/25 14:49 Q15MIN PRN BG 50-70 responsive npo pt Dextrose 50 ml 05/28/25 14:50 Dextrose 50%-Water Inj 50 Ml Syringe IV 06/27/25 14:49 Q15MIN PRN BG <50 OR BG <70 & pt unresponsive Finasteride 5 mg 05/28/25 09:00 06/01/25 09:34 Finasteride 5 Mg Tablet PO 06/27/25 08:59 5 mg QDAY AMANDA Administration Fluconazole 200 mg 05/30/25 10:00 06/01/25 09:35 Fluconazole 100 Mg Tablet PO 06/06/25 09:59 200 mg QDAY AMANDA Administration Glucagon 1 mg 05/28/25 14:50 Glucagon Inj 1 Mg Vial IM Q15MIN PRN BG <70, and no IV access Lactated Ringer's 500 mls @ 50 mls/hr 06/01/25 10:15 06/01/25 10:26 Lactated Ringers IV 06/01/25 20:14 50 mls/hr .Q10H ONE Administration Insulin Human Lispro 0 unit 05/28/25 17:00 06/01/25 11:48 Insulin Lispro (Admelog) 1 Unit/0.01 Ml Unit SC 06/27/25 16:59 Not Given ACHS AMANDA Protocol Methadone HCl 30 mg 05/30/25 09:00 06/01/25 09:33 Methadone Hcl 10 Mg Tablet PO 06/04/25 08:59 30 mg QDAY AMANDA Administration Protocol Metoprolol Tartrate 12.5 mg 05/30/25 14:47 06/01/25 09:34 Metoprolol Tartrate 25 Mg Tablet PO 06/29/25 13:29 12.5 mg BID AMANDA Administration Ondansetron HCl 4 mg 05/27/25 20:34 Ondansetron Inj 2 Mg/Ml Inj 2 Ml IVP 06/26/25 20:33 Q6H PRN NAUSEA OR VOMITING Protocol Sennosides 1 tab 05/28/25 09:00 06/01/25 09:35 Senna Tablet PO 06/27/25 08:59 1 tab QDAY AMANDA Administration Protocol Tamsulosin HCl 0.4 mg 05/28/25 09:00 06/01/25 09:34 Tamsulosin Hcl 0.4 Mg Capsule PO 06/27/25 08:59 0.4 mg QDAY AMANDA Administration Plan 69-year-old male patient with hypertension, diabetes mellitus, congestive heart failure, history of CVA, status post permanent pacemaker was seen in the ED today. He came from the methadone clinic where he was noted to be short of breath and more confused than his baseline he also reportedly has been falling down at home. He has no fever no cough. He had elevated troponin. EKG showed sinus rhythm with PVCs. Nonspecific ST-T wave changes. Head CT scan was ordered. #Acute Encephalopathy #Possible dementia -AAOx2, Per daughter, patient declined rapidly at the end of February 2025. -No witnesses of seizure or post-ictal state noted. -He had hx of CVA 15yrs ago, unable to move his left arm -Head CT: Negative for acute hemorrhage or mass effect or midline shift -Ddx: d/t polypharmacy (methadone) VS Cardiogenic VS Orthostatic -Patient might have underlying dementia. Plan: -Decreased methadone to 30mg -Pending MRI with and without contrast to r/o any malignancy given the hx of significant weight lose in short period of time -Possibly get in touch with daughter for patient's baseline -Consulted Neurology, Dr. Granados, Appreciate recommendations #HFrEF with EF of 35% #A-fib -Patient on AICD/pacemaker. -ECHO (05/29/2025): Normal LV size, wall thickness with moderate global hypokinesis . Estimated LVEF at 35%, The RV is normal in size with mildly decreased systolic function. Pacemaker device wire visualized in the RV. Severely increased LA volume 56.4 mL/m?. Mild MAC. Trace MR. Mild TR with normal PA Pressure. IVC not well visualized. Plan: -Pending device interrogation in setting of encephalopathy and MRI compatibility -On Eliquis 5mg PO bid and Metoprolol tartrate 12.5 mg bid. -Consulted Cardiology, appreciate recommendations. #KATE-Resolving -BUN 60 creatinine 1.9 on admission -Renal US: Small kidneys with renal cortical thinning, Moderate bilateral renal parenchymal scar formation, No hydronephrosis Plan: -Monitor morning labs. -Strict I and O -Avoid nephrotoxins -Renally dose medication #Hyponatremia -Serum sodium level of 133, we will continue to follow. -Fluid restrict #Non-insulin dependent type 2 diabetes -HbA1c: 6.8 -Patient not on any insulin Plan: -Sliding scale insulin -Continue to monitor glucose level. #Hx of Opioid dependence -Uses Methadone as a tx. #Hx Hypertension - On metoprolol 12.5mg -Held Lasix and Coreg due to hypotension. #Leukocytosis-Resolving -WBC: 11.1 to 13.4. Now 10.3 -Vitals stable. Afebrile Plan: -Will continue to monitor #Dyspnea-Resolved #Troponemia - Resolving -BNP 98. Troponin downtrending, D dimer normal -CXR: No pneumonia or pulmonary edema, Suspicious for pulmonary artery hypertension -Vitals stable. Patient is asymptomatic. Plan: -Resumed patient's home med eliquis. -Monitor O2 sats check O2 sat particularly during activity or during ambulation Disposition: Med tele Diet: Carbohydrate consistent Diet GI prophylaxis: Maalox DVT prophylaxis: SCD Code: FULL Assessment and plan discussed with my attending physician Dr. Ping Guy (PGY-1) - Internal medicine resident Attending Provider Attestation/Addendum Stacy Walker DO, attest that I was physically present for the coronado portions of the service and evaluated the patient with the resident and I reviewed and discussed the case with the resident and agree with the resident's findings and plans of care as documented above # Acute toxic metabolic encephalopathy #Suspected dementia #Cardiomyopathy, unspecified, s/p AICD #Afib #KATE, resolved # Falls #Chronic Opioid dependence #Elevated troponin #Type 2 NIDDM #Hyponatremia #hyperkalemia Patient is a 69-year-old male with past medical history of cardiomyopathy status post AICD, A-fib, chronic opioid dependence, type II NIDDM, hypertension, CVA with left upper extremity weakness who was admitted for acute encephalopathy and dyspnea. Patient remains A&Ox1. Patient states that it is 1948 currently. He has no acute complaints at this time. Pending MRI and neurology recommendations. Per cardiology, AICD is MRI compatible.
[2025-06-01 14:32] LABS: Albumin, Serum 3.7 gm/dL (3.4-4.8); Anion Gap 9 (7-16); BUN/Creatinine Ratio 26 Ratio (12-20); Blood Urea Nitrogen 31 mg/dL (9-23); Calcium 9.1 mg/dL (8.3-10.6); Calcium (Corrected) 9.3 mg/dL (8.5-10.1); Carbon Dioxide 21.8 mMol/L (20.0-31.0); Chloride 103 mMol/L (98-107); Creatinine (Component) 1.2 mg/dL (0.6-1.3); Estimated Creatinine Clearance 53.1 mL/min (>60); Glucose 124 mg/dL (74-106); Osmolality,Calculated 275 (275-295); Phosphorous 3.1 mg/dL (2.4-5.1); Potassium 4.6 mMol/L (3.4-5.1); Sodium 134 mMol/L (136-145); eGFR > 60 See Note
--- NOTE | 2025-06-01 15:17 | PC.SS ---
Rounding Note: MRI is pending. Neurology and cardiology recommendations are pending. D/C within 1-2 days.
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
[2025-06-01] MEDS: INSULIN LISPRO (AdmeLOG) 1 UNIT/0.01 ML UNIT SC (20:19)
[2025-06-02] VITALS (8 sets, daily range): BP systolic 97–143; BP diastolic 53–74; PULSE 55–86; RESP 15–19; TEMP 36.1–36.6; O2SAT 93–99; BMI 17.1
--- NOTE | 2025-06-02 02:47 | RESP.EEG ---
EEG has been completed and is ready for MD interpretation.
[2025-06-02 06:10] LABS: Basophils # (Auto) 0.0 Thou/mm3 (0.0-0.2); Basophils % (Auto) 0 % (0-2.5); Eosinophils # (Auto) 0.3 Thou/mm3 (0.0-0.5); Eosinophils % (Auto) 3 % (0-10); Hematocrit 39.3 % (41.0-53.0); Hemoglobin 13.2 g/dL (13.5-16.0); Immature Granulocytes Auto 0.03 Thou/mm3 (0.00-0.00); Lymphocytes # (Auto) 2.0 Thou/mm3 (1.0-4.8); Lymphocytes % (Auto) 21 % (10-50); Mean Corpuscular HGB Conc 33.6 g/dl (31.0-37.0); Mean Corpuscular Hemoglobin 27.2 pg (25.0-35.0); Mean Corpuscular Volume 81 fL (80-100); Monocytes # (Auto) 0.9 Thou/mm3 (0.0-0.8); Monocytes % (Auto) 10 % (0-12); Neutrophils # (Auto) 6.2 Thou/mm3 (1.8-7.7); Neutrophils % (Auto) 66 % (37-80); Nucleated Red Blood Cell # 0.00 Thou/mm3 (0.00-0.00); Nucleated Red Blood Cell % 0 /100 WBC (0); Platelet Count 182 Thou/mm3 (140-440); RDW Standard Deviation 50.4 fL (35.1-43.9); Red Blood Count 4.86 Miln/mm3 (4.50-5.90); White Blood Count 9.5 Thou/mm3 (3.8-10.6)
[2025-06-02 06:42] LABS: Alanine Aminotransferase 9 U/L (10-49); Albumin, Serum 3.5 gm/dL (3.4-4.8); Albumin/Globulin Ratio 1.0 (1.2-2.2); Alkaline Phosphatase 70 U/L (46-116); Anion Gap 11 (7-16); Aspartate Amino Transferase 18 U/L (0-34); BUN/Creatinine Ratio 37 Ratio (12-20); Bilirubin,Total 0.4 mg/dL (0.3-1.2); Blood Urea Nitrogen 37 mg/dL (9-23); Calcium 9.0 mg/dL (8.3-10.6); Calcium (Corrected) 9.4 mg/dL (8.5-10.1); Carbon Dioxide 22.7 mMol/L (20.0-31.0); Chloride 102 mMol/L (98-107); Creatinine (Component) 1.0 mg/dL (0.6-1.3); Estimated Creatinine Clearance 64.0 mL/min (>60); Globulin 3.6 gm/dL (2.3-3.5); Glucose 100 mg/dL (74-106); Magnesium 1.8 mg/dL (1.6-2.6); Osmolality,Calculated 280 (275-295); Phosphorous 3.5 mg/dL (2.4-5.1); Potassium 4.7 mMol/L (3.4-5.1); Sodium 136 mMol/L (136-145); Total Protein 7.1 gm/dL (5.7-8.2); eGFR > 60 See Note
[2025-06-02] MEDS: FINASTERIDE 5 MG TABLET PO (08:26)
[2025-06-02] MEDS: FLUCONAZOLE 100 MG TABLET 200 MG PO (08:27)
[2025-06-02] MEDS: APIXABAN 2.5 MG TABLET 5 MG PO ×2 (08:27→20:32)
[2025-06-02] MEDS: METHADONE HCL 10 MG TABLET 30 MG PO (08:28)
[2025-06-02] MEDS: TAMSULOSIN HCL 0.4 MG CAPSULE PO (08:28)
[2025-06-02] MEDS: MAGNESIUM OXIDE 400 MG TABLET PO (08:31)
--- NOTE | 2025-06-02 10:47 | PC.SS ---
Addendum entered by Marivel Peoples 06/02/25 12:34: SS spoke to Sneha cheatham by phone and provided her with verbal choices for accepting SNF to [facility] or [facility]. Dtr is requesting [facility]. SS has spoken to Shey from [facility] and they will start insurance authorization. Original Note: SS spoke to Sneha cheatham by phone and provided her with verbal d/c options for SNF to [facility], [facility], and [facility] who accepted from [facility]. Sneha Cheatham explained pt goes to the Methadone Clinic, [facility] and his caregiver from [facility], Kade phone# [phone] usually transports him. SS spoke to Kade who explained she takes pt every Sunday at 9am and pt is provided with week supply. Dtr requested for SS to speak with SNF and inquire if they are able to provide transportation to Meth[facility]one Clinic in case caregiver is unable. SS spoke to Maria Isabel from [facility] and Leslie Vargas from [facility] and they are unable to accept due to pt going to the Meth[facility]one Clinic. SS spoke to Perla from [facility] and they can accept. Karen from [facility] can accept if caregiver provides transportation. Dtr also requested for SS to speak with pt and let him chose SNF. SS and bedside nurse, Camacho met with pt and provided him with SNF options to [facility] or [facility]. Patient's choice is [facility]. SS attempted to contact dtr but was only able to leave voicemail with SS contact information.
--- NOTE | 2025-06-02 14:48 | ESPR_ITS ---
Documentation for date of: 06/02/25 Subjective Subjective Interval history: No acute overnight events. Seen and examined at bedside and resting comfortably in bed. Device compatibility confirmed and signed and should be available to get MRI. Exam Vital Signs Temp Pulse Resp BP Pulse Ox O2 Del Method 97.1 F 61 17 143/53 H 97 Room Air 06/02/25 12:00 06/02/25 12:00 06/02/25 12:00 06/02/25 12:00 06/02/25 12:00 06/02/25 12:00 Narrative Exam General: Alert and oriented to name and birthdate but not year or place, no acute distress, able to speak full sentences HEENT: NC/AT, mucous membranes moist, bilateral sclera anicteric Cardiovascular: irregular rhythm, S1/S2 present, no murmurs appreciated Pulmonary: clear to auscultation bilaterally, no rales/rhonchi/wheezes Abdominal: soft, non-tender, non-distended, no rebound/guarding, normal bowel sounds present Musculoskeletal: no peripheral edema Skin: warm and dry, intact, no rashes Neuro: CN II-XII intact, unable to lift left arm secondary to previous CVA Objective Labs 06/02/25 05:24 06/02/25 05:24 Labs: Laboratory Results - last 24 hr 06/01/25 06/02/25 13:05 05:24 WBC 9.5 RBC 4.86 Hgb 13.2 L Hct 39.3 L MCV 81 MCH 27.2 MCHC 33.6 RDW Std Deviation 50.4 H Plt Count 182 Neut % (Auto) 66 Lymph % (Auto) 21 Lamb % (Auto) 10 Eos % (Auto) 3 Baso % (Auto) 0 Neut # (Auto) 6.2 Lymph # (Auto) 2.0 Lamb # (Auto) 0.9 H Eos # (Auto) 0.3 Baso # (Auto) 0.0 Immature Gran # (Auto) 0.03 H Absolute Nucleated RBC 0.00 Immature Gran % 0 Nucleated RBC % 0 Sodium 134 L 136 Potassium 4.6 D 4.7 Chloride 103 102 Carbon Dioxide 21.8 22.7 Anion Gap 9 11 BUN 31 H 37 H Creatinine 1.2 1.0 Estim Creat Clear Calc 53.1 L 64.0 eGFR > 60 > 60 BUN/Creatinine Ratio 26 H 37 H Glucose 124 H 100 Calculated Osmolality 275 280 Calcium 9.1 9.0 Corrected Calcium 9.3 9.4 Phosphorus 3.1 3.5 Magnesium 1.8 Total Bilirubin 0.4 AST 18 ALT 9 L Alkaline Phosphatase 70 Total Protein 7.1 Albumin 3.7 3.5 Globulin 3.6 H Albumin/Globulin Ratio 1.0 L Quality Measures Quality Measures none Advance care planning discussed with:: patient Assessment & Plan Assessment Current Active Medications: Generic Name Dose Route Start Last Admin Trade Name Freq PRN Reason Stop Dose Admin Acetaminophen 650 mg 05/27/25 20:34 Acetaminophen 325 Mg Tablet PO 06/26/25 20:33 Q6H PRN Fever >101.5 Al Hydrox/Mg Hydrox/Simethicone 30 ml 05/27/25 20:34 Mg Hyd/Al Hyd/Nelida (Maalox Reg) Susp 30 Ml Udc PO 06/26/25 20:33 Q6H PRN Indigestion Apixaban 5 mg 05/28/25 09:00 06/02/25 08:27 Apixaban 2.5 Mg Tablet PO 06/27/25 08:59 5 mg BID AMANDA Administration Dextrose 25 ml 05/28/25 14:50 Dextrose 50%-Water Inj 50 Ml Syringe IV 06/27/25 14:49 Q15MIN PRN BG 50-70 responsive npo pt Dextrose 50 ml 05/28/25 14:50 Dextrose 50%-Water Inj 50 Ml Syringe IV 06/27/25 14:49 Q15MIN PRN BG <50 OR BG <70 & pt unresponsive Finasteride 5 mg 05/28/25 09:00 06/02/25 08:26 Finasteride 5 Mg Tablet PO 06/27/25 08:59 5 mg QDAY AMANDA Administration Fluconazole 200 mg 05/30/25 10:00 06/02/25 08:27 Fluconazole 100 Mg Tablet PO 06/06/25 09:59 200 mg QDAY AMANDA Administration Glucagon 1 mg 05/28/25 14:50 Glucagon Inj 1 Mg Vial IM Q15MIN PRN BG <70, and no IV access Insulin Human Lispro 0 unit 05/28/25 17:00 06/02/25 11:36 Insulin Lispro (Admelog) 1 Unit/0.01 Ml Unit SC 06/27/25 16:59 Not Given ACHS AMANDA Protocol Methadone HCl 30 mg 05/30/25 09:00 06/02/25 08:28 Methadone Hcl 10 Mg Tablet PO 06/04/25 08:59 30 mg QDAY AMANDA Administration Protocol Metoprolol Tartrate 12.5 mg 05/30/25 14:47 06/02/25 08:27 Metoprolol Tartrate 25 Mg Tablet PO 06/29/25 13:29 Not Given BID AMANDA Ondansetron HCl 4 mg 05/27/25 20:34 Ondansetron Inj 2 Mg/Ml Inj 2 Ml IVP 06/26/25 20:33 Q6H PRN NAUSEA OR VOMITING Protocol Sennosides 1 tab 05/28/25 09:00 06/02/25 08:28 Senna Tablet PO 06/27/25 08:59 1 tab QDAY AMANDA Administration Protocol Tamsulosin HCl 0.4 mg 05/28/25 09:00 06/02/25 08:28 Tamsulosin Hcl 0.4 Mg Capsule PO 06/27/25 08:59 0.4 mg QDAY AMANDA Administration Plan 69-year-old male with history of HFrEF status post AICD, atrial fibrillation on eliquis, CVA, hypertension, type 2 diabetes mellitus, BPH, chronic pain on methadone who is admitted for acute encephalopathy and cardiology consulted for NSTEMI II and AICD interrogation. #HFrEF (EF 35%, 05/2025) s/p AICD #NSTEMI type II Echo on 05/2025 showed normal LV size and wall thickness but moderate global hypokinesis, EF 35%. RV normal in size but mildly decreased systolic function. Severely increased LA volume. Home medications include Coreg, empagliflozin, Lasix. ? Device compatibility confirmed and signed off by die designer apprentice #Atrial fibrillation versus flutter ? Eliquis 5 mg p.o. twice daily ? Metoprolol tartrate 12.5 mg twice daily #Acute encephalopathy #KATE #Type 2 diabetes mellitus #BPH #Chronic pain on methadone ? Continue management per primary team ----- Plan discussed with attending physician Dr. Massimo Broderick MD PGY-2 Internal Medicine
--- NOTE | 2025-06-02 15:25 | ESPR_ITS ---
<Statement entered by Mikaela Flowers MD - 06/05/25 17:20> I reviewed above note and agree with findings and plans. I have also personally examined the patient with medicine team and went over assessment and plan with medical team including production internship and resident physician. Documentation for date of: 06/02/25 Subjective Subjective Interval history: No Overnight events. Labs reviewed and patient examined at the bedside. Currently pending brain MRI without contrast and EEG. Denies chest pain, palpation, SOB, abdominal pain, N/V, fevers or chills. Exam Vital Signs Temp Pulse Resp BP Pulse Ox O2 Del Method 97.1 F 61 17 143/53 H 97 Room Air 06/02/25 12:00 06/02/25 12:00 06/02/25 12:00 06/02/25 12:00 06/02/25 12:00 06/02/25 12:00 Narrative Exam General: Elderly, Frail, AAO x2 Eye: Normal conjunctiva, no scleral icterus HENT: Normocephalic, atraumatic, hearing intact to conversation at normal volume, moist oral mucosa Neck: Supple, non-tender, no JVD, no lymphadenopathy Lungs: Non-labored respirations, symmetric chest rise, Clear to auscultate bilaterally, No wheezing, rhonchi, crackles Heart: Peripheral pulses intact bilaterally, Regular Rate and Rhythm. Abdomen: Soft, non-tender, non-distended, no palpable masses Musculoskeletal: Normal range of motion and strength, No cyanosis or edema, No visible joint swelling Skin: Skin is warm, dry, no rashes or lesions. Psychiatric: Cooperative, appropriate mood and affect, Awake and alert, not agitated Neuro: Cranial nerves II-XII grossly intact. Sensations intact to light touch. M uscle strength 2/5 on left arm, 5/5 muscle strength on right arm. Objective Labs 06/02/25 05:24 06/02/25 05:24 Labs: Laboratory Results - last 24 hr 06/02/25 05:24 WBC 9.5 RBC 4.86 Hgb 13.2 L Hct 39.3 L MCV 81 MCH 27.2 MCHC 33.6 RDW Std Deviation 50.4 H Plt Count 182 Neut % (Auto) 66 Lymph % (Auto) 21 Blaine % (Auto) 10 Eos % (Auto) 3 Baso % (Auto) 0 Neut # (Auto) 6.2 Lymph # (Auto) 2.0 Blaine # (Auto) 0.9 H Eos # (Auto) 0.3 Baso # (Auto) 0.0 Immature Gran # (Auto) 0.03 H Absolute Nucleated RBC 0.00 Immature Gran % 0 Nucleated RBC % 0 Sodium 136 Potassium 4.7 Chloride 102 Carbon Dioxide 22.7 Anion Gap 11 BUN 37 H Creatinine 1.0 Estim Creat Clear Calc 64.0 eGFR > 60 BUN/Creatinine Ratio 37 H Glucose 100 Calculated Osmolality 280 Calcium 9.0 Corrected Calcium 9.4 Phosphorus 3.5 Magnesium 1.8 Total Bilirubin 0.4 AST 18 ALT 9 L Alkaline Phosphatase 70 Total Protein 7.1 Albumin 3.5 Globulin 3.6 H Albumin/Globulin Ratio 1.0 L Quality Measures Quality Measures none Advance care planning discussed with:: patient Assessment & Plan Assessment Current Active Medications: Generic Name Dose Route Start Last Admin Trade Name Freq PRN Reason Stop Dose Admin Acetaminophen 650 mg 05/27/25 20:34 Acetaminophen 325 Mg Tablet PO 06/26/25 20:33 Q6H PRN Fever >101.5 Al Hydrox/Mg Hydrox/Simethicone 30 ml 05/27/25 20:34 Mg Hyd/Al Hyd/Nelida (Maalox Reg) Susp 30 Ml Udc PO 06/26/25 20:33 Q6H PRN Indigestion Apixaban 5 mg 05/28/25 09:00 06/02/25 08:27 Apixaban 2.5 Mg Tablet PO 06/27/25 08:59 5 mg BID AMANDA Administration Dextrose 25 ml 05/28/25 14:50 Dextrose 50%-Water Inj 50 Ml Syringe IV 06/27/25 14:49 Q15MIN PRN BG 50-70 responsive npo pt Dextrose 50 ml 05/28/25 14:50 Dextrose 50%-Water Inj 50 Ml Syringe IV 06/27/25 14:49 Q15MIN PRN BG <50 OR BG <70 & pt unresponsive Finasteride 5 mg 05/28/25 09:00 06/02/25 08:26 Finasteride 5 Mg Tablet PO 06/27/25 08:59 5 mg QDAY AMANDA Administration Fluconazole 200 mg 05/30/25 10:00 06/02/25 08:27 Fluconazole 100 Mg Tablet PO 06/06/25 09:59 200 mg QDAY AMANDA Administration Glucagon 1 mg 05/28/25 14:50 Glucagon Inj 1 Mg Vial IM Q15MIN PRN BG <70, and no IV access Insulin Human Lispro 0 unit 05/28/25 17:00 06/02/25 11:36 Insulin Lispro (Admelog) 1 Unit/0.01 Ml Unit SC 06/27/25 16:59 Not Given ACHS AMANDA Protocol Methadone HCl 30 mg 05/30/25 09:00 06/02/25 08:28 Methadone Hcl 10 Mg Tablet PO 06/04/25 08:59 30 mg QDAY AMANDA Administration Protocol Metoprolol Tartrate 12.5 mg 05/30/25 14:47 06/02/25 08:27 Metoprolol Tartrate 25 Mg Tablet PO 06/29/25 13:29 Not Given BID AMANDA Ondansetron HCl 4 mg 05/27/25 20:34 Ondansetron Inj 2 Mg/Ml Inj 2 Ml IVP 06/26/25 20:33 Q6H PRN NAUSEA OR VOMITING Protocol Sennosides 1 tab 05/28/25 09:00 06/02/25 08:28 Senna Tablet PO 06/27/25 08:59 1 tab QDAY AMANDA Administration Protocol Tamsulosin HCl 0.4 mg 05/28/25 09:00 06/02/25 08:28 Tamsulosin Hcl 0.4 Mg Capsule PO 06/27/25 08:59 0.4 mg QDAY [facility] Administration Plan 69-year-old male patient with hypertension, diabetes mellitus, congestive heart failure, history of CVA, status post permanent pacemaker was seen in the ED today. He came from the methadone clinic where he was noted to be short of breath and more confused than his baseline he also reportedly has been falling down at home. Patient was admitted for management of acute encephalopathy #Acute Encephalopathy #Possible dementia -AAOx2, Per daughter, patient declined rapidly at the end of February 2025. -No witnesses of seizure or post-ictal state noted. -He had hx of CVA 15yrs ago, unable to move his left arm -Head CT: Negative for acute hemorrhage or mass effect or midline shift -Ddx: d/t polypharmacy (methadone) VS Cardiogenic VS Orthostatic -Patient might have underlying dementia. Plan: -Decreased methadone to 30mg -Pending MRI with and without contrast to r/o any malignancy given the hx of significant weight lose in short period of time -Pending EEG -Possibly get in touch with daughter for patient's baseline -Consulted Neurology, Dr. Granados, Appreciate recommendations #HFrEF with EF of 35% #A-fib -Patient on AICD/pacemaker. -ECHO (05/29/2025): Normal LV size, wall thickness with moderate global hypokinesis . Estimated LVEF at 35%, The RV is normal in size with mildly decreased systolic function. Pacemaker device wire visualized in the RV. Severely increased LA volume 56.4 mL/m?. Mild MAC. Trace MR. Mild TR with normal PA Pressure. IVC not well visualized. Plan: -Pending device interrogation in setting of encephalopathy and MRI compatibility -On Eliquis 5mg PO bid and Metoprolol tartrate 12.5 mg bid. -Consulted Cardiology, appreciate recommendations. #KATE-Resolving -BUN 60 creatinine 1.9 on admission -Renal US: Small kidneys with renal cortical thinning, Moderate bilateral renal parenchymal scar formation, No hydronephrosis Plan: -Monitor morning labs. -Strict I and O -Avoid nephrotoxins -Renally dose medication #Hyponatremia -Serum sodium level of 133, we will continue to follow. -Fluid restrict #Non-insulin dependent type 2 diabetes -HbA1c: 6.8 -Patient not on any insulin Plan: -Sliding scale insulin -Continue to monitor glucose level. #Hx of Opioid dependence -Uses Methadone as a tx. #Hx Hypertension - On metoprolol 12.5mg -Held Lasix and Coreg due to hypotension. #Leukocytosis-Resolving -WBC: 11.1 to 13.4. Now 10.3 -Vitals stable. Afebrile Plan: -Will continue to monitor #Dyspnea-Resolved #Troponemia - Resolving -BNP 98. Troponin downtrending, D dimer normal -CXR: No pneumonia or pulmonary edema, Suspicious for pulmonary artery hypertension -Vitals stable. Patient is asymptomatic. Plan: -Resumed patient's home med eliquis. -Monitor O2 sats check O2 sat particularly during activity or during ambulation Disposition: Med tele Diet: Carbohydrate consistent Diet GI prophylaxis: Maalox DVT prophylaxis: SCD Code: FULL Assessment and plan discussed with my attending physician Dr. Kristie Guy (PGY-1) - Internal medicine resident
[2025-06-02] MEDS: INSULIN LISPRO (AdmeLOG) 1 UNIT/0.01 ML UNIT SC (20:32)
--- NOTE | 2025-06-02 20:33 | ESPR_ITS ---
Documentation for date of: 06/02/25 Subjective Subjective Interval history: Patient examined at bedside. Vitals stable, labs unremarkable. Mentation has improved today. He is AOx2 (oriented to self and location) otherwise thinks that its 1943. Cardiology confirmed that pacemaker is compatible with MRI. EEG was negative for seizure activity but consistent with waveforms of dementia. Likely vascular dementia and patient has history of previous stroke. Continue to monitor. Patient will need placement to SNF. Exam Vital Signs Temp Pulse Resp BP Pulse Ox O2 Del Method 97.8 F 58 L 16 97/55 L 99 Room Air 06/02/25 20:00 06/02/25 20:28 06/02/25 20:00 06/02/25 20:28 06/02/25 20:00 06/02/25 20:00 Narrative Exam General:Elderly male, No acute distress, cooperative, eating dinner HEENT: NCAT, No JVD noted. Mucosa moist. Pinpoint Pupils are equal and reactive to light bilaterally Cardiovascular: Normal S1 and S2. Regular rate and rhythm. Respiratory: Lungs are clear to auscultation bilaterally. No wheezing or crackles heard. Abdomen: Soft, nontender, not distended, normal bowel sounds. Skin: Warm to touch, dry, no rashes noted Musculoskeletal: No gross injuries. Able to move all 4 extremities. No pitting edema Neuro: Alert and oriented to self only. Thinks he is in [place] and its 1948. Strength 5/5 in DOMENIC and b/l LE. Strength 2/5 in left upper arm. No dysmetria, gait not tested. CN grossly intact. Psych: Normal affect and mood Objective Labs 06/04/25 04:28 06/04/25 04:28 Labs: Laboratory Results - last 24 hr 06/02/25 05:24 WBC 9.5 RBC 4.86 Hgb 13.2 L Hct 39.3 L MCV 81 MCH 27.2 MCHC 33.6 RDW Std Deviation 50.4 H Plt Count 182 Neut % (Auto) 66 Lymph % (Auto) 21 Morgan % (Auto) 10 Eos % (Auto) 3 Baso % (Auto) 0 Neut # (Auto) 6.2 Lymph # (Auto) 2.0 Morgan # (Auto) 0.9 H Eos # (Auto) 0.3 Baso # (Auto) 0.0 Immature Gran # (Auto) 0.03 H Absolute Nucleated RBC 0.00 Immature Gran % 0 Nucleated RBC % 0 Sodium 136 Potassium 4.7 Chloride 102 Carbon Dioxide 22.7 Anion Gap 11 BUN 37 H Creatinine 1.0 Estim Creat Clear Calc 64.0 eGFR > 60 BUN/Creatinine Ratio 37 H Glucose 100 Calculated Osmolality 280 Calcium 9.0 Corrected Calcium 9.4 Phosphorus 3.5 Magnesium 1.8 Total Bilirubin 0.4 AST 18 ALT 9 L Alkaline Phosphatase 70 Total Protein 7.1 Albumin 3.5 Globulin 3.6 H Albumin/Globulin Ratio 1.0 L Quality Measures Quality Measures none Advance care planning discussed with:: patient and child Assessment & Plan Assessment Current Active Medications: Generic Name Dose Route Start Last Admin Trade Name Freq PRN Reason Stop Dose Admin Acetaminophen 650 mg 05/27/25 20:34 Acetaminophen 325 Mg Tablet PO 06/26/25 20:33 Q6H PRN Fever >101.5 Al Hydrox/Mg Hydrox/Simethicone 30 ml 05/27/25 20:34 Mg Hyd/Al Hyd/Nelida (Maalox Reg) Susp 30 Ml Udc PO 06/26/25 20:33 Q6H PRN Indigestion Apixaban 5 mg 05/28/25 09:00 06/02/25 08:27 Apixaban 2.5 Mg Tablet PO 06/27/25 08:59 5 mg BID AMANDA Administration Dextrose 25 ml 05/28/25 14:50 Dextrose 50%-Water Inj 50 Ml Syringe IV 06/27/25 14:49 Q15MIN PRN BG 50-70 responsive npo pt Dextrose 50 ml 05/28/25 14:50 Dextrose 50%-Water Inj 50 Ml Syringe IV 06/27/25 14:49 Q15MIN PRN BG <50 OR BG <70 & pt unresponsive Finasteride 5 mg 05/28/25 09:00 06/02/25 08:26 Finasteride 5 Mg Tablet PO 06/27/25 08:59 5 mg QDAY AMANDA Administration Fluconazole 200 mg 05/30/25 10:00 06/02/25 08:27 Fluconazole 100 Mg Tablet PO 06/06/25 09:59 200 mg QDAY AMANDA Administration Glucagon 1 mg 05/28/25 14:50 Glucagon Inj 1 Mg Vial IM Q15MIN PRN BG <70, and no IV access Insulin Human Lispro 0 unit 05/28/25 17:00 06/02/25 16:48 Insulin Lispro (Admelog) 1 Unit/0.01 Ml Unit SC 06/27/25 16:59 Not Given ACHS AMANDA Protocol Methadone HCl 30 mg 05/30/25 09:00 06/02/25 08:28 Methadone Hcl 10 Mg Tablet PO 06/04/25 08:59 30 mg QDAY AMANDA Administration Protocol Metoprolol Tartrate 12.5 mg 05/30/25 14:47 06/02/25 20:28 Metoprolol Tartrate 25 Mg Tablet PO 06/29/25 13:29 Not Given BID AMANDA Ondansetron HCl 4 mg 05/27/25 20:34 Ondansetron Inj 2 Mg/Ml Inj 2 Ml IVP 06/26/25 20:33 Q6H PRN NAUSEA OR VOMITING Protocol Sennosides 1 tab 05/28/25 09:00 06/02/25 08:28 Senna Tablet PO 06/27/25 08:59 1 tab QDAY AMANDA Administration Protocol Tamsulosin HCl 0.4 mg 05/28/25 09:00 06/02/25 08:28 Tamsulosin Hcl 0.4 Mg Capsule PO 06/27/25 08:59 0.4 mg QDAY AMANDA Administration Plan 69-year-old male patient with hypertension, diabetes mellitus, congestive heart failure, A fib on Eliquis, history of CVA, status post permanent pacemaker presented to ED due to AMS. He came from the methadone clinic where he was noted to be short of breath and more confused than his baseline he also reportedly has been falling down at home. Neurology consulted for further workup. #Acute Encephalopathy-improving #Vascular dementia AAOx2, Per daughter, patient declined rapidly at the end of February 2025. No witnesses of seizure or post-ictal state noted. He had hx of CVA 15yrs ago, unable to move his left arm Head CT: Negative for acute hemorrhage or mass effect or midline shift. EEG was negative for seizure activity but consistent with waveforms of dementia. -Decreased methadone to 30mg -Pending MRI with and without contrast -PT -SNF placement -follow up with neurology outpatient #HFrEF with EF of 35% #A-fib -Patient on AICD/pacemaker. -ECHO (05/29/2025): Normal LV size, wall thickness with moderate global hypokinesis . Estimated LVEF at 35%, The RV is normal in size with mildly decreased systolic function. Pacemaker device wire visualized in the RV. Severely increased LA volume 56.4 mL/m?. Mild MAC. Trace MR. Mild TR with normal PA Pressure. IVC not well visualized. Plan: -Pending device interrogation in setting of encephalopathy and MRI compatibility -On Eliquis 5mg PO bid and Metoprolol tartrate 12.5 mg bid. #KATE-Resolving #Hyponatremia #Non-insulin dependent type 2 diabetes #Hx of Opioid dependence #Hx Hypertension #Leukocytosis-Resolving #Dyspnea-Resolved #Troponemia - Resolving Primary care team to manage above conditions and ongoing care needs. The patient's management plan was discussed with my attending physician Dr. Granados. Juliet Longo, PGY-2 Attending Provider Attestation/Addendum I personally have seen and examined the patient at the bedside and I agreed with resident's findings, assessment and plan of care. EEG was negative for seizure activity but consistent with waveforms of dementia. -Decreased methadone to 30mg -Pending MRI with and without contrast -PT and then decide about SNF placement
[2025-06-03] VITALS (12 sets, daily range): BP systolic 102–140; BP diastolic 48–74; PULSE 55–93; RESP 14–20; TEMP 36–36.8; O2SAT 94–99; BMI 16.2; BMI 16.9; BMI 14.0
--- NOTE | 2025-06-03 | XR_ITS ---
Examination: MRI brain without intravenous contrast. Date and time of exam: June 03 2025, 10:21 a.m. INDICATIONS: Confusion beginning May 27, 2025 Technique: Multiple axial and sagittal images of the brain obtained. Siemens high-resolution 1.5 Sonja short bore scanners utilized. Sagittal sections, T1-weighted, TR 500, TE 14, are performed. Axial sections proton-density and T2-weighted have been obtained. Inversion recovery axial images, TR 9, 260, TE 111, TI 2500. Diffusion weighted images, axial sections, TR 4800, TE 128, B value 1000 Axial sections, ADC map, TR 4800, TE 128 Findings: Enlargement of the sella turcica is not present. The optic chiasm and infundibular are not remarkable. Prepontine and interpeduncular cisterns are not enlarged. There is no localized enlargement of the medulla or varun. Fourth ventricle and cerebellar tonsils appear normal in position. No subacute area of hemorrhage density is seen. Mass in the cerebellopontine angle region is not evident. Globes symmetrical. Orbital musculature including medial lateral rectus muscles do not exhibit abnormality. Diffusion-weighted images demonstrate no definite focus of restricted diffusion. Increased white matter signal prominent Significant sphenoid sinus disease Mass effect upon the ventricular system is not identified. Impression: Negative for acute hemorrhage mass effect or midline shift No acute infarct Prominent chronic microvascular white matter change
[2025-06-03 06:16] LABS: Basophils # (Auto) 0.0 Thou/mm3 (0.0-0.2); Basophils % (Auto) 0 % (0-2.5); Eosinophils # (Auto) 0.3 Thou/mm3 (0.0-0.5); Eosinophils % (Auto) 3 % (0-10); Hematocrit 38.8 % (41.0-53.0); Hemoglobin 13.0 g/dL (13.5-16.0); Immature Granulocytes Auto 0.05 Thou/mm3 (0.00-0.00); Lymphocytes # (Auto) 1.8 Thou/mm3 (1.0-4.8); Lymphocytes % (Auto) 18 % (10-50); Mean Corpuscular HGB Conc 33.5 g/dl (31.0-37.0); Mean Corpuscular Hemoglobin 27.4 pg (25.0-35.0); Mean Corpuscular Volume 82 fL (80-100); Monocytes # (Auto) 1.0 Thou/mm3 (0.0-0.8); Monocytes % (Auto) 10 % (0-12); Neutrophils # (Auto) 6.9 Thou/mm3 (1.8-7.7); Neutrophils % (Auto) 69 % (37-80); Nucleated Red Blood Cell # 0.00 Thou/mm3 (0.00-0.00); Nucleated Red Blood Cell % 0 /100 WBC (0); Platelet Count 189 Thou/mm3 (140-440); RDW Standard Deviation 50.9 fL (35.1-43.9); Red Blood Count 4.74 Miln/mm3 (4.50-5.90); White Blood Count 9.9 Thou/mm3 (3.8-10.6)
[2025-06-03 06:32] LABS: Alanine Aminotransferase 9 U/L (10-49); Albumin, Serum 3.6 gm/dL (3.4-4.8); Albumin/Globulin Ratio 0.9 (1.2-2.2); Alkaline Phosphatase 74 U/L (46-116); Anion Gap 9 (7-16); Aspartate Amino Transferase 18 U/L (0-34); BUN/Creatinine Ratio 26 Ratio (12-20); Bilirubin,Total 0.5 mg/dL (0.3-1.2); Blood Urea Nitrogen 26 mg/dL (9-23); Calcium 9.4 mg/dL (8.3-10.6); Calcium (Corrected) 9.7 mg/dL (8.5-10.1); Carbon Dioxide 23.1 mMol/L (20.0-31.0); Chloride 103 mMol/L (98-107); Creatinine (Component) 1.0 mg/dL (0.6-1.3); Estimated Creatinine Clearance 60.9 mL/min (>60); Globulin 3.9 gm/dL (2.3-3.5); Glucose 115 mg/dL (74-106); Magnesium 1.8 mg/dL (1.6-2.6); Osmolality,Calculated 275 (275-295); Phosphorous 3.3 mg/dL (2.4-5.1); Potassium 4.9 mMol/L (3.4-5.1); Sodium 135 mMol/L (136-145); Total Protein 7.5 gm/dL (5.7-8.2); eGFR > 60 See Note
[2025-06-03] MEDS: APIXABAN 2.5 MG TABLET 5 MG PO ×2 (08:50→20:40)
[2025-06-03] MEDS: METOPROLOL TARTRATE 25 MG TABLET 12.5 MG PO (08:51)
[2025-06-03] MEDS: FINASTERIDE 5 MG TABLET PO (08:51)
[2025-06-03] MEDS: METHADONE HCL 10 MG TABLET 30 MG PO (08:51)
[2025-06-03] MEDS: FLUCONAZOLE 100 MG TABLET 200 MG PO (08:51)
[2025-06-03] MEDS: TAMSULOSIN HCL 0.4 MG CAPSULE PO (08:52)
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
--- NOTE | 2025-06-03 12:20 | ESPR_ITS ---
<Statement entered by Gilles Keys MD - 06/05/25 13:33> I personally evaluated examined the patient who has multiple medical problems including atrial fibrillation ICD implantation which is functioning well remains in A-fib rate controlled well continue to Eliquis and guideline directed medical management for heart failure patient is clinically stable from cardiovascular point if he evaluate the patient with the resident physician Dr. Jacobo Broderick, PGY 2 agree with treatment plan recommendation as documented Documentation for date of: 06/03/25 Subjective Subjective Interval history: No acute overnight events. Seen and examined at bedside and patient resting comfortably in bed. Denies any chest discomfort, palpitations, shortness of breath. Vital signs show bradycardia on telemetry showed atrial fibrillation and patient is on Eliquis already, otherwise stable. Labs unremarkable. Plan to be discharged to SNF. Exam Vital Signs Temp Pulse Resp BP Pulse Ox O2 Del Method 97.7 F 56 L 18 108/56 L 95 Room Air 06/03/25 12:00 06/03/25 12:00 06/03/25 12:00 06/03/25 12:00 06/03/25 12:00 06/03/25 12:00 Narrative Exam General: Alert and oriented to name and birthdate but not year or place, no acute distress, able to speak full sentences HEENT: NC/AT, mucous membranes moist, bilateral sclera anicteric Cardiovascular: irregular rhythm, S1/S2 present, no murmurs appreciated Pulmonary: clear to auscultation bilaterally, no rales/rhonchi/wheezes Abdominal: soft, non-tender, non-distended, no rebound/guarding, normal bowel sounds present Musculoskeletal: no peripheral edema Skin: warm and dry, intact, no rashes Neuro: CN II-XII intact, unable to lift left arm secondary to previous CVA Objective Labs 06/03/25 05:35 06/03/25 05:35 Labs: Laboratory Results - last 24 hr 06/03/25 05:35 WBC 9.9 RBC 4.74 Hgb 13.0 L Hct 38.8 L MCV 82 MCH 27.4 MCHC 33.5 RDW Std Deviation 50.9 H Plt Count 189 Neut % (Auto) 69 Lymph % (Auto) 18 [place] % (Auto) 10 Eos % (Auto) 3 Baso % (Auto) 0 Neut # (Auto) 6.9 Lymph # (Auto) 1.8 [place] # (Auto) 1.0 H Eos # (Auto) 0.3 Baso # (Auto) 0.0 Immature Gran # (Auto) 0.05 H Absolute Nucleated RBC 0.00 Immature Gran % 1 H Nucleated RBC % 0 Sodium 135 L Potassium 4.9 Chloride 103 Carbon Dioxide 23.1 Anion Gap 9 BUN 26 H Creatinine 1.0 Estim Creat Clear Calc 60.9 L eGFR > 60 BUN/Creatinine Ratio 26 H Glucose 115 H Calculated Osmolality 275 Calcium 9.4 Corrected Calcium 9.7 Phosphorus 3.3 Magnesium 1.8 Total Bilirubin 0.5 AST 18 ALT 9 L Alkaline Phosphatase 74 Total Protein 7.5 Albumin 3.6 Globulin 3.9 H Albumin/Globulin Ratio 0.9 L Quality Measures Quality Measures none Advance care planning discussed with:: patient Assessment & Plan Assessment Current Active Medications: Generic Name Dose Route Start Last Admin Trade Name Freq PRN Reason Stop Dose Admin Acetaminophen 650 mg 05/27/25 20:34 Acetaminophen 325 Mg Tablet PO 06/26/25 20:33 Q6H PRN Fever >101.5 Al Hydrox/Mg Hydrox/Simethicone 30 ml 05/27/25 20:34 Mg Hyd/Al Hyd/Nelida (Maalox Reg) Susp 30 Ml Udc PO 06/26/25 20:33 Q6H PRN Indigestion Apixaban 5 mg 05/28/25 09:00 06/03/25 08:50 Apixaban 2.5 Mg Tablet PO 06/27/25 08:59 5 mg BID AMANDA Administration Dextrose 25 ml 05/28/25 14:50 Dextrose 50%-Water Inj 50 Ml Syringe IV 06/27/25 14:49 Q15MIN PRN BG 50-70 responsive npo pt Dextrose 50 ml 05/28/25 14:50 Dextrose 50%-Water Inj 50 Ml Syringe IV 06/27/25 14:49 Q15MIN PRN BG <50 OR BG <70 & pt unresponsive Finasteride 5 mg 05/28/25 09:00 06/03/25 08:51 Finasteride 5 Mg Tablet PO 06/27/25 08:59 5 mg QDAY AMANDA Administration Fluconazole 200 mg 05/30/25 10:00 06/03/25 08:51 Fluconazole 100 Mg Tablet PO 06/06/25 09:59 200 mg QDAY AMANDA Administration Glucagon 1 mg 05/28/25 14:50 Glucagon Inj 1 Mg Vial IM Q15MIN PRN BG <70, and no IV access Insulin Human Lispro 0 unit 05/28/25 17:00 06/03/25 11:48 Insulin Lispro (Admelog) 1 Unit/0.01 Ml Unit SC 06/27/25 16:59 Not Given ACHS AMANDA Protocol Methadone HCl 30 mg 05/30/25 09:00 06/03/25 08:51 Methadone Hcl 10 Mg Tablet PO 06/04/25 08:59 30 mg QDAY AMANDA Administration Protocol Metoprolol Tartrate 12.5 mg 05/30/25 14:47 06/03/25 08:51 Metoprolol Tartrate 25 Mg Tablet PO 06/29/25 13:29 12.5 mg BID AMANDA Administration Ondansetron HCl 4 mg 05/27/25 20:34 Ondansetron Inj 2 Mg/Ml Inj 2 Ml IVP 06/26/25 20:33 Q6H PRN NAUSEA OR VOMITING Protocol Sennosides 1 tab 05/28/25 09:00 06/03/25 08:51 Senna Tablet PO 06/27/25 08:59 1 tab QDAY AMANDA Administration Protocol Tamsulosin HCl 0.4 mg 05/28/25 09:00 06/03/25 08:52 Tamsulosin Hcl 0.4 Mg Capsule PO 06/27/25 08:59 0.4 mg QDAY AMANDA Administration Plan 69-year-old male with history of HFrEF status post AICD, atrial fibrillation on eliquis, CVA, hypertension, type 2 diabetes mellitus, BPH, chronic pain on methadone who is admitted for acute encephalopathy and cardiology consulted for NSTEMI II and AICD interrogation. #HFrEF (EF 35%, 05/2025) s/p AICD #NSTEMI type II Echo on 05/2025 showed normal LV size and wall thickness but moderate global hypokinesis, EF 35%. RV normal in size but mildly decreased systolic function. Severely increased LA volume. Home medications include Coreg, empagliflozin, Lasix. ? Device compatibility confirmed and signed off by marketing compliance manager #Atrial fibrillation versus flutter ? Eliquis 5 mg p.o. twice daily ? Metoprolol tartrate 12.5 mg twice daily #Acute encephalopathy #KATE #Type 2 diabetes mellitus #BPH #Chronic pain on methadone ? Continue management per primary team ----- Plan discussed with attending physician Dr. Massimo Broderick MD PGY-2 Internal Medicine
--- NOTE | 2025-06-03 15:21 | PC.SS ---
MATERIAL CONTROL MANAGER informed by resource management planner that patient's insurance has denied SNF placement. D/C plan will be for the patient to discharge home with home health services. MATERIAL CONTROL MANAGER to follow up with patient's care provider and daughter.
--- NOTE | 2025-06-03 16:47 | PC.PT ---
Patient will be dc from PT services secondary to patient is at his PLOF. (Pls see PT notes)
[2025-06-03] MEDS: INSULIN LISPRO (AdmeLOG) 1 UNIT/0.01 ML UNIT SC ×2 (16:56→20:37)
--- NOTE | 2025-06-03 21:13 | ESPR_ITS ---
Documentation for date of: 06/03/25 Subjective Subjective Interval history: Patient examined at bedside. Vitals stable, labs unremarkable. Mentation has improved today. He is AOx2 (oriented to self and location) otherwise thinks that its 1943. Cardiology confirmed that pacemaker is compatible with MRI. EEG was negative for seizure activity but consistent with waveforms of dementia. Likely vascular dementia and patient has history of previous stroke. Continue to monitor. Patient will need placement to SNF. Exam Vital Signs Temp Pulse Resp BP Pulse Ox O2 Del Method 98.3 F 57 L 20 107/58 L 99 Room Air 06/03/25 20:00 06/03/25 20:39 06/03/25 20:00 06/03/25 20:39 06/03/25 20:00 06/03/25 20:00 Narrative Exam General:Elderly male, No acute distress, cooperative, eating dinner HEENT: NCAT, No JVD noted. Mucosa moist. Pinpoint Pupils are equal and reactive to light bilaterally Cardiovascular: Normal S1 and S2. Regular rate and rhythm. Respiratory: Lungs are clear to auscultation bilaterally. No wheezing or crackles heard. Abdomen: Soft, nontender, not distended, normal bowel sounds. Skin: Warm to touch, dry, no rashes noted Musculoskeletal: No gross injuries. Able to move all 4 extremities. No pitting edema Neuro: Alert and oriented to self only. Thinks he is in [place] and its 1948. Strength 5/5 in DOMENIC and b/l LE. Strength 2/5 in left upper arm. No dysmetria, gait not tested. CN grossly intact. Psych: Normal affect and mood Objective Labs 06/04/25 04:28 06/04/25 04:28 Labs: Laboratory Results - last 24 hr 06/03/25 05:35 WBC 9.9 RBC 4.74 Hgb 13.0 L Hct 38.8 L MCV 82 MCH 27.4 MCHC 33.5 RDW Std Deviation 50.9 H Plt Count 189 Neut % (Auto) 69 Lymph % (Auto) 18 [place] % (Auto) 10 Eos % (Auto) 3 Baso % (Auto) 0 Neut # (Auto) 6.9 Lymph # (Auto) 1.8 [place] # (Auto) 1.0 H Eos # (Auto) 0.3 Baso # (Auto) 0.0 Immature Gran # (Auto) 0.05 H Absolute Nucleated RBC 0.00 Immature Gran % 1 H Nucleated RBC % 0 Sodium 135 L Potassium 4.9 Chloride 103 Carbon Dioxide 23.1 Anion Gap 9 BUN 26 H Creatinine 1.0 Estim Creat Clear Calc 60.9 L eGFR > 60 BUN/Creatinine Ratio 26 H Glucose 115 H Calculated Osmolality 275 Calcium 9.4 Corrected Calcium 9.7 Phosphorus 3.3 Magnesium 1.8 Total Bilirubin 0.5 AST 18 ALT 9 L Alkaline Phosphatase 74 Total Protein 7.5 Albumin 3.6 Globulin 3.9 H Albumin/Globulin Ratio 0.9 L Quality Measures Quality Measures VTE prophylaxis Advance care planning discussed with:: patient Assessment & Plan Assessment Current Active Medications: Generic Name Dose Route Start Last Admin Trade Name Freq PRN Reason Stop Dose Admin Acetaminophen 650 mg 05/27/25 20:34 Acetaminophen 325 Mg Tablet PO 06/26/25 20:33 Q6H PRN Fever >101.5 Al Hydrox/Mg Hydrox/Simethicone 30 ml 05/27/25 20:34 Mg Hyd/Al Hyd/Nelida (Maalox Reg) Susp 30 Ml Udc PO 06/26/25 20:33 Q6H PRN Indigestion Apixaban 5 mg 05/28/25 09:00 06/03/25 20:40 Apixaban 2.5 Mg Tablet PO 06/27/25 08:59 5 mg BID AMANDA Administration Dextrose 25 ml 05/28/25 14:50 Dextrose 50%-Water Inj 50 Ml Syringe IV 06/27/25 14:49 Q15MIN PRN BG 50-70 responsive npo pt Dextrose 50 ml 05/28/25 14:50 Dextrose 50%-Water Inj 50 Ml Syringe IV 06/27/25 14:49 Q15MIN PRN BG <50 OR BG <70 & pt unresponsive Finasteride 5 mg 05/28/25 09:00 06/03/25 08:51 Finasteride 5 Mg Tablet PO 06/27/25 08:59 5 mg QDAY AMANDA Administration Fluconazole 200 mg 05/30/25 10:00 06/03/25 08:51 Fluconazole 100 Mg Tablet PO 06/06/25 09:59 200 mg QDAY AMANDA Administration Glucagon 1 mg 05/28/25 14:50 Glucagon Inj 1 Mg Vial IM Q15MIN PRN BG <70, and no IV access Insulin Human Lispro 0 unit 05/28/25 17:00 06/03/25 20:37 Insulin Lispro (Admelog) 1 Unit/0.01 Ml Unit SC 06/27/25 16:59 1 unit ACHS AMANDA Administration Protocol Melatonin 3 mg 06/03/25 21:00 Melatonin 3 Mg Tablet PO 07/03/25 20:59 HS AMANDA Methadone HCl 30 mg 05/30/25 09:00 06/03/25 08:51 Methadone Hcl 10 Mg Tablet PO 06/04/25 08:59 30 mg QDAY AMANDA Administration Protocol Metoprolol Tartrate 12.5 mg 05/30/25 14:47 06/03/25 20:39 Metoprolol Tartrate 25 Mg Tablet PO 06/29/25 13:29 Not Given BID AMANDA Ondansetron HCl 4 mg 05/27/25 20:34 Ondansetron Inj 2 Mg/Ml Inj 2 Ml IVP 06/26/25 20:33 Q6H PRN NAUSEA OR VOMITING Protocol Sennosides 1 tab 05/28/25 09:00 06/03/25 08:51 Senna Tablet PO 06/27/25 08:59 1 tab QDAY AMANDA Administration Protocol Tamsulosin HCl 0.4 mg 05/28/25 09:00 06/03/25 08:52 Tamsulosin Hcl 0.4 Mg Capsule PO 06/27/25 08:59 0.4 mg QDAY AMANDA Administration Plan 69-year-old male patient with hypertension, diabetes mellitus, congestive heart failure, A fib on Eliquis, history of CVA, status post permanent pacemaker presented to ED due to AMS. He came from the methadone clinic where he was noted to be short of breath and more confused than his baseline he also reportedly has been falling down at home. Neurology consulted for further workup. #Acute Encephalopathy-improving #Vascular dementia AAOx2, Per daughter, patient declined rapidly at the end of February 2025. No witnesses of seizure or post-ictal state noted. He had hx of CVA 15yrs ago, unable to move his left arm Head CT: Negative for acute hemorrhage or mass effect or midline shift. EEG was negative for seizure activity but consistent with waveforms of dementia. -Decreased methadone to 30mg -Pending MRI with and without contrast -PT -SNF placement -follow up with neurology outpatient #HFrEF with EF of 35% #A-fib -Patient on AICD/pacemaker. -ECHO (05/29/2025): Normal LV size, wall thickness with moderate global hypokinesis . Estimated LVEF at 35%, The RV is normal in size with mildly decreased systolic function. Pacemaker device wire visualized in the RV. Severely increased LA volume 56.4 mL/m?. Mild MAC. Trace MR. Mild TR with normal PA Pressure. IVC not well visualized. Plan: -Pending device interrogation in setting of encephalopathy and MRI compatibility -On Eliquis 5mg PO bid and Metoprolol tartrate 12.5 mg bid. #KATE-Resolving #Hyponatremia #Non-insulin dependent type 2 diabetes #Hx of Opioid dependence #Hx Hypertension #Leukocytosis-Resolving #Dyspnea-Resolved #Troponemia - Resolving Primary care team to manage above conditions and ongoing care needs. The patient's management plan was discussed with my attending physician Dr. Granados. Juliet Longo, PGY-2 Attending Provider Attestation/Addendum I personally have seen and examined the patient at the bedside and I agreed with resident's findings, assessment and plan of care. EEG was negative for seizure activity but consistent with waveforms of dementia. -Decreased methadone to 30mg -MRI with and without contrast: Negative for acute hemorrhage mass effect or midline shift No acute infarct, Prominent chronic microvascular white matter change -PT and then decide about SNF placement
[2025-06-03] MEDS: MELATONIN 3 MG TABLET PO (21:31)
[2025-06-04] VITALS: BP 132/69; PULSE 55; PULSE 82; RESP 13; TEMP 36.7; O2SAT 99
[2025-06-04 04:00] VITALS: BP 135/75; PULSE 55; PULSE 69; RESP 12; TEMP 36.9; O2SAT 99
[2025-06-04 05:47] LABS: Basophils # (Auto) 0.1 Thou/mm3 (0.0-0.2); Basophils % (Auto) 1 % (0-2.5); Eosinophils # (Auto) 0.3 Thou/mm3 (0.0-0.5); Eosinophils % (Auto) 3 % (0-10); Hematocrit 39.6 % (41.0-53.0); Hemoglobin 12.8 g/dL (13.5-16.0); Immature Granulocytes Auto 0.03 Thou/mm3 (0.00-0.00); Lymphocytes # (Auto) 1.9 Thou/mm3 (1.0-4.8); Lymphocytes % (Auto) 19 % (10-50); Mean Corpuscular HGB Conc 32.3 g/dl (31.0-37.0); Mean Corpuscular Hemoglobin 26.6 pg (25.0-35.0); Mean Corpuscular Volume 82 fL (80-100); Monocytes # (Auto) 1.0 Thou/mm3 (0.0-0.8); Monocytes % (Auto) 10 % (0-12); Neutrophils # (Auto) 6.6 Thou/mm3 (1.8-7.7); Neutrophils % (Auto) 68 % (37-80); Nucleated Red Blood Cell # 0.00 Thou/mm3 (0.00-0.00); Nucleated Red Blood Cell % 0 /100 WBC (0); Platelet Count 218 Thou/mm3 (140-440); RDW Standard Deviation 51.0 fL (35.1-43.9); Red Blood Count 4.82 Miln/mm3 (4.50-5.90); White Blood Count 9.8 Thou/mm3 (3.8-10.6)
[2025-06-04 06:00] VITALS: BMI 16.9
[2025-06-04 06:15] LABS: Alanine Aminotransferase 13 U/L (10-49); Albumin, Serum 3.9 gm/dL (3.4-4.8); Albumin/Globulin Ratio 1.1 (1.2-2.2); Alkaline Phosphatase 78 U/L (46-116); Anion Gap 11 (7-16); Aspartate Amino Transferase 20 U/L (0-34); BUN/Creatinine Ratio 32 Ratio (12-20); Bilirubin,Total 0.5 mg/dL (0.3-1.2); Blood Urea Nitrogen 29 mg/dL (9-23); Calcium 9.2 mg/dL (8.3-10.6); Calcium (Corrected) 9.3 mg/dL (8.5-10.1); Carbon Dioxide 24.3 mMol/L (20.0-31.0); Chloride 100 mMol/L (98-107); Creatinine (Component) 0.9 mg/dL (0.6-1.3); Estimated Creatinine Clearance 70.6 mL/min (>60); Globulin 3.5 gm/dL (2.3-3.5); Glucose 121 mg/dL (74-106); Magnesium 1.7 mg/dL (1.6-2.6); Osmolality,Calculated 276 (275-295); Phosphorous 4.0 mg/dL (2.4-5.1); Potassium 5.0 mMol/L (3.4-5.1); Sodium 135 mMol/L (136-145); Total Protein 7.4 gm/dL (5.7-8.2); eGFR > 60 See Note
[2025-06-04 08:00] VITALS: BP 113/61; PULSE 62; RESP 19; TEMP 36.2; O2SAT 98
[2025-06-04 08:31] VITALS: BP 123/61; PULSE 62
[2025-06-04] MEDS: METOPROLOL TARTRATE 25 MG TABLET 12.5 MG PO (08:31)
[2025-06-04] MEDS: FINASTERIDE 5 MG TABLET PO (08:32)
[2025-06-04] MEDS: APIXABAN 2.5 MG TABLET 5 MG PO (08:33)
[2025-06-04] MEDS: TAMSULOSIN HCL 0.4 MG CAPSULE PO (08:33)
[2025-06-04] MEDS: FLUCONAZOLE 100 MG TABLET 200 MG PO (08:33)
--- NOTE | 2025-06-04 09:53 | PC.SS ---
TYRE RETREADER conducted bedside contact with patient and care provider. Care provider, Nida Song ; confirmed availability to meet with patient upon arrival to apartment. Per care provider, transport needs to be conducted this morning due to care provider having to attend medical appointment at 1:00 pm today. TYRE RETREADER to arrange medical van transport. TYRE RETREADER confirmed with bedside nurse ability to have patient ready for A.M. discharge.
--- NOTE | 2025-06-04 10:39 | PC.SS ---
Transport scheduled for 11:30 am today. Care provider to meet with patient at residence. Patient, care provider and bedside nurse updated.
[2025-06-04 11:45] VITALS: BP 148/77; PULSE 74; RESP 19; TEMP 37.2; O2SAT 94
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
--- NOTE | 2025-06-05 14:54 | PC.SS ---
SS has communicated with aDhlia BAUTISTA from patient's health insurance Dr. Flowers still has not received peer to peer phone call from their physician. Wendy BAUTISTA has notified their physician.
--- NOTE | 2025-06-07 17:54 | PC.CM ---
[facility] accepted patient and they will open on 06/09.
== END 2025-06-04 11:59 | disposition home health service (06) | DRG 92 ==
LOC: SERX 19:56 → SERHOLD 22:54 → S2NX 05-28 08:22 → SERHOLD 05-28 08:22
PROVIDERS: Admitting Provider Internal Medicine; Emergency Provider Emergency Medicine; PCP Family Medicine; Visit Provider Internal Medicine
DX: G92.8 Other toxic encephalopathy (principal); E87.1 Hypo-osmolality and hyponatremia; N17.9 Acute kidney failure, unspecified; I50.22 Chronic systolic (congestive) heart failure; I13.0 Hypertensive heart and chronic kidney disease with heart failure and stage 1 through stage 4 chronic kidney disease, or unspecified chronic kidney disease; F11.20 Opioid dependence, uncomplicated; I48.20 Chronic atrial fibrillation, unspecified; Z59.00 Homelessness unspecified; N18.9 Chronic kidney disease, unspecified; E11.22 Type 2 diabetes mellitus with diabetic chronic kidney disease; F01.50 Vascular dementia, unspecified severity, without behavioral disturbance, psychotic disturbance, mood disturbance, and anxiety; E87.5 Hyperkalemia; G89.29 Other chronic pain; I25.2 Old myocardial infarction; I69.334 Monoplegia of upper limb following cerebral infarction affecting left non-dominant side; N27.1 Small kidney, bilateral; N40.0 Benign prostatic hyperplasia without lower urinary tract symptoms; R29.6 Repeated falls; R62.7 Adult failure to thrive; Z59.82 Transportation insecurity; Z79.01 Long term (current) use of anticoagulants; Z79.84 Long term (current) use of oral hypoglycemic drugs; Z95.810 Presence of automatic (implantable) cardiac defibrillator; W18.30XA Fall on same level, unspecified, initial encounter; E86.0 Dehydration
CPT/HCPCS: 36415; 70450; 70551; 71045; 72020; 73502; 76770; 80048; 80053; 80061; 80069; 80307; 81001; 83036; 83735; 83880; 84100; 84443; 84484; 85025; 85379; 85610; 85730; 87040; 87811; 93005; 93306; 94762; 95816; 96360; 96361; 97162; G0378; J1815; J3475; J7050; J7120; J7999; A9270